=== PATIENT | female | born 1970 | race Caucasian/White ===

== ENCOUNTER 2017-06-23 20:46 | Inpatient (IN) | payer OTHER ==
[~2017-06-23] VITALS: Ht 175.2 cm; Wt 131.1 kg
[~2017-06-23 20:46] MED LIST: ANAPROX DS550 MG PO; ANTIVERT25 MG PO; CIPRO500 MG PO; CIPROFLOXACIN100 MG PO; CIPROFLOXACIN500 MG PO; COLACE100 MG PO; COREG3.125 MG PO; FLAGYL250 MG PO; FLAGYL500 MG PO; HYDROCODONE BIT1 T11 PO; LEVOFLOXACIN500 MG PO; LISINOPRIL10 MG PO; LISINOPRIL5 MG PO; MEDROL DOSEPAK4 MG PO; MIRALAX17 GM PO; MULTIPLE VITAMI1 CAP PO; Motrin,Rufen800 MG PO; NEURONTIN100 MG PO; NORCO 325 MG-101 TAB PO; NORCO 325 MG-51 TAB PO; NORVASC5 MG PO; PEPCID20 MG PO; PREDNICOT20 MG PO; PROAIR HFA0.09 MG/AC INH; VICODIN ES 7501 TAB PO; ZITHROMAX Z PA250 MG PO; ZITHROMAX250 MG PO; ZOFRAN ODT4 MG SL; ZOFRAN4 MG PO
[2017-06-23 20:53] VITALS: BP 152/93
--- NOTE | 2017-06-23 21:35 | NUR ---
PT MEDICATED FOR PAIN PER DOCTORS ORDERS. PRIOR TO MEDICATION ADMINISTRATION PT RATES PAIN 9/10. NO NEW ORDERS AT THIS TIME. WILL CONTINUE TO MONITOR.
--- NOTE | 2017-06-23 21:50 | NUR ---
PT STATES THE MEDICATION GIVEN PROVIDED SOME PAIN RELIEF. PT STATES HER PAIN IS NOW A 7/10. DOCTOR NOTIFIED. WILL CONTINUE TO MONITOR.
[2017-06-23 21:58] LABS: BASO # 0.1 10*3/uL (0.0-0.1); BASO % 0.5 % (0.0-1.0); EOS # 0.1 10*3/uL (0.0-0.4); EOS % 0.3 % (1.0-4.0); HEMATOCRIT 42.9 % (37.0-47.0); HEMOGLOBIN 14.2 g/dl (12.0-16.0); LYMPH # 4.9 10*3/uL (1.3-4.4); LYMPH % 26.7 % (27.0-41.0); MEAN CELL VOLUME 88.8 fl (81.0-99.0); MEAN CORPUSCULAR HGB 29.4 pg (27.0-31.0); MEAN CORPUSCULAR HGB CONC 33.1 g/dl (33.0-37.0); MEAN PLATELET VOLUME 10.4 fl (9.6-12.3); MONO # 1.1 10*3/uL (0.1-1.0); PLATELET COUNT AUTOMATED 441 10*3/uL (130-400); RED BLOOD COUNT 4.83 10*6/uL (4.10-5.10); RED CELL DISTRI WIDTH 13.9 % (0-14.5); WHITE BLOOD COUNT 18.2 10*3/uL (4.8-10.8)
[2017-06-23 22:09] LABS: ACT PARTIAL THROMBO TIME 30.4 SECONDS (20.8-31.5)
[2017-06-23 22:14] LABS: ALBUMIN 2.9 gm/dl (3.1-4.5); ALKALINE PHOSPHATASE 124 U/L (45-117); BUN 7 mg/dl (7-24); CHLORIDE 103 mmol/L (98-107); CREATININE 0.72 mg/dL (0.55-1.02); LIPASE 97 U/L (73-393); POTASSIUM 3.8 mmol/L (3.5-5.1); SGOT/AST 23 IU/L (3-35); SGPT/ALT 22 U/L (12-78); SODIUM 134 mmol/L (136-145); TOTAL PROTEIN 7.9 gm/dL (6.4-8.2)
--- NOTE | 2017-06-23 22:37 | NUR ---
PT MEDICATED FOR PAIN PER DOCTORS ORDERS. PRIOR TO MEDICATION ADMINISTRATION PT RATES PAIN 7/10. WILL CONTINUE TO MONITOR.
--- NOTE | 2017-06-23 23:00 | NUR ---
PT STATES THE MEDICATION PROVIDED RELIEF FOR PAIN. PT STATES PAIN 09/21. PT RESTING IN BED. WILL CONTINUE TO MONITOR.
[2017-06-24 00:27] LABS: BILIRUBIN NEGATIVE (NEGATIVE); BLOOD 3+ (NEGATIVE); CLARITY SL CLOUDY (CLEAR); COLOR YELLOW (YELLOW); GLUCOSE NEGATIVE (NEGATIVE); KETONE NEGATIVE (NEGATIVE); LEUKO ESTERASE NEGATIVE (NEGATIVE); NITRITE NEGATIVE (NEGATIVE); PH 5.5 (5.0-9.0)
[2017-06-24 00:41] LABS: BACTERIA TRACE; EPITHELIAL CELLS 15-20
[2017-06-24 01:30] VITALS: BP 113/61
--- NOTE | 2017-06-24 01:43 | NUR ---
PT TAKES NO HOME MEDICATIONS.
--- NOTE | 2017-06-24 01:44 | NUR ---
A 46, admitted to , under the services of NABIL Bennett DO with a diagnosis of DIVERTICULITIS. Chief complaint is ABDOMINAL PAIN. Patient arrived via bed from ER. Monitor applied. Initial assessment completed. Vital signs taken and recorded. NABIL BENNETT DO notified of admission to the unit. Orders received. See assessment for past medical history, medications and allergies. Patient and/or family oriented to unit. visitation policy reviewed. Clothing/patient valuable form completed. URIEL ARSHAD
[2017-06-24 06:31] LABS: BASO # 0.1 10*3/uL (0.0-0.1); BASO % 0.4 % (0.0-1.0); EOS # 0.1 10*3/uL (0.0-0.4); EOS % 0.9 % (1.0-4.0); HEMATOCRIT 40.9 % (37.0-47.0); HEMOGLOBIN 13.5 g/dl (12.0-16.0); LYMPH # 3.8 10*3/uL (1.3-4.4); LYMPH % 28.3 % (27.0-41.0); MEAN CELL VOLUME 91.5 fl (81.0-99.0); MEAN CORPUSCULAR HGB 30.2 pg (27.0-31.0); MEAN PLATELET VOLUME 10.4 fl (9.6-12.3); MONO # 1.1 10*3/uL (0.1-1.0); NEUT # 8.3 10*3/uL (2.3-7.9); NEUT % 61.9 % (47.0-73.0); PLATELET COUNT AUTOMATED 362 10*3/uL (130-400); RED BLOOD COUNT 4.47 10*6/uL (4.10-5.10); RED CELL DISTRI WIDTH 13.9 % (0-14.5); WHITE BLOOD COUNT 13.3 10*3/uL (4.8-10.8)
[2017-06-24 06:47] LABS: BUN 6 mg/dl (7-24); CHLORIDE 105 mmol/L (98-107); CHOLESTEROL 142 mg/dL (<200); CREATININE 0.65 mg/dL (0.55-1.02); HDL CHOLESTEROL 39 mg/dl (40-60); LDL CHOLESTEROL 85 mg/dL (9-159); POTASSIUM 3.7 mmol/L (3.5-5.1); SODIUM 140 mmol/L (136-145); TRIGLYCERIDES 91 mg/dl (<150); VLDL CHOLESTEROL 18 mg/dL (6-40)
[2017-06-24 06:54] LABS: ACT PARTIAL THROMBO TIME 30.5 SECONDS (20.8-31.5)
--- NOTE | 2017-06-24 07:08 | NUR ---
CALLED DR. DONNELLY AT ; NO ANSWER. CALLED OFFICE AT HIS OFFICE & LEFT MESSAGE REGARDING CONSULT.
--- NOTE | 2017-06-24 07:20 | NUR ---
DR. DONNELLY CALLED IN & NOTIFIED OF CONSULT. WILL SEE PT. THIS MORNING.
--- NOTE | 2017-06-24 07:45 | NUR ---
PT SITTING UP IN BED. RESP-EASY AND REGULAR. IVF INFUSING WITH NO PROBLEM. C/O LLQ PAIN, RATES PAIN 7 ON PAIN SCALE. MEDICATED WITH TYLENOL TWO TAB PO PER PRN ORDER, SEE EMAR. IVF INFUSING WITH NO PROBLEM. CALL LIGHT IN REACH. SEE SHIFT ASSESSMENT.
--- NOTE | 2017-06-24 07:50 | NUR ---
TRIED CALLING BABAK CLANCY FOR PAIN MEDICATION NO ANSWER.
[2017-06-24 08:00] VITALS: BP 126/77
--- NOTE | 2017-06-24 08:15 | NUR ---
BABAK CALLED. AWARE PT PAIN, SHE WILL SEE HER AND ORDER SOMETHING.
--- NOTE | 2017-06-24 08:56 | NUR ---
MEDICATIONS NOT PROFILED YET.
--- NOTE | 2017-06-24 09:07 | NUR ---
Supervisor Model Making in to talk to patient. Patient states lives at home with . There are few steps in the home. Physician: none [facility]acy[facility] Home health services: none Patient's level of ADLs: INDEPENDENT Patient has working utilities: all working DME: none Follow-up physician's appointment after d/c: will be made by hospitalist nurse director upon discharge Does patient want to access PORTAL?: no Discharge plan discussed with patient, patient lives at home with , is independent in adls and ambulation, patient states she will be going home when able and denies any home needs. QUIN BUTLER
--- NOTE | 2017-06-24 09:18 | NUR ---
PT MEDICATED WITH TORADOL IV PER PRN ORDER, SEE EMAR. FOR C/O LLQ PAIN, RATES PAIN 7 ON PAIN SCALE 0-10. CALL LIGHT IN REACH.
--- NOTE | 2017-06-24 09:25 | NUR ---
APPLIED NICOTINE PATCH PER PT REQUEST. CALL LIGHT IN REACH.
[2017-06-24 09:31] LABS: VITAMIN D, 25-HYDROXY 12.5 ng/mL (30-100)
--- NOTE | 2017-06-24 10:15 | NUR ---
SITTING IN BED. STATES PAIN MEDICATION HELPED SOME. CALL LIGHT IN REACH.
[2017-06-24 12:00] VITALS: BP 123/84
--- NOTE | 2017-06-24 12:00 | NUR ---
SITTING UP IN BED WITH VISITOR AT HER SIDE. NO C/O AT THIS TIME. TOLERATED ROUTINE VITAMIN D. CALL LIGHT IN REACH.
--- NOTE | 2017-06-24 15:30 | NUR ---
PT MEDICATED WITH TYLENOL PER PT REQUEST FOR HEADACHE, RATES PAIN 4 ON PAIN SCALE 0-10. SEE EMAR. CALL LIGHT IN REACH.
[2017-06-24 16:00] VITALS: BP 143/85
--- NOTE | 2017-06-24 16:30 | NUR ---
PT SITTING UP IN BED WITH VISITORS AT HER SIDE. STATES PAIN MEDICATION HELPED. NO C/O AT THIS TIME. CALL LIGHT IN REACH. SEE SHIFT ASSESSMENT.
--- NOTE | 2017-06-24 18:15 | NUR ---
PT SITTING UP IN BED WITH VISITORS AT HER SIDE. NO C/O AT THIS TIME. CALL LIGHT IN REACH.
--- NOTE | 2017-06-24 19:41 | NUR ---
PATIENT RESTING IN BED WITH NO S/S OF DISTRESS. NO NEEDS MADE. BED IN LOWEST POSITION, CALL LIGHT IN REACH
[2017-06-24 20:00] VITALS: BP 121/62
--- NOTE | 2017-06-24 20:20 | NUR ---
Pt checked on for a PRN breathing tx. Not indicated at this time. Lungs are clear and Spo2 on room air is 96%. Pt informed to call if she ever feels SOB or wheezing.
--- NOTE | 2017-06-24 20:30 | NUR ---
PATIENT MEDICATED WITH PRN TYLENOL FOR HEADACHE RATED 4/10 ON A 0/10 PAIN SCALE
[2017-06-25] VITALS: BP 104/62
--- NOTE | 2017-06-25 03:19 | NUR ---
MEDICATED WITH PRN TORADOL FOR C/O ABDOMINAL AND BACK PAIN. RATES 02/21.
[2017-06-25 08:00] VITALS: BP 124/94
--- NOTE | 2017-06-25 08:00 | NUR ---
PATIENT IS ALERT AND OTRIENTS THIS MORNING, IN TO VISIT, SITTING ON LEFT SIDE OF BED. NO COMPLAINTS OF PAIN AT THIS TIME. BE FORTUNECC
--- NOTE | 2017-06-25 09:00 | NUR ---
PT SITTING UP AT SIDE OF BED. RESP-EASY AND REGULAR. IVF INFUSING WITH NO PROBLEM. NO C/O AT THIS TIME. STUDENT NURSES TAKING CARE PT TODAY. CALL LIGHT IN REACH. WILL CON'T TO MONITOR.
--- NOTE | 2017-06-25 09:00 | NUR ---
case management visits with patient, patient states she will be going home, denies any home needs
[2017-06-25 09:08] LABS: HEMATOCRIT 38.6 % (37.0-47.0); HEMOGLOBIN 12.6 g/dl (12.0-16.0); MEAN CELL VOLUME 91.3 fl (81.0-99.0); MEAN CORPUSCULAR HGB 29.8 pg (27.0-31.0); MEAN CORPUSCULAR HGB CONC 32.6 g/dl (33.0-37.0); MEAN PLATELET VOLUME 10.3 fl (9.6-12.3); PLATELET COUNT AUTOMATED 387 10*3/uL (130-400); RED BLOOD COUNT 4.23 10*6/uL (4.10-5.10); RED CELL DISTRI WIDTH 13.8 % (0-14.5); WHITE BLOOD COUNT 12.2 10*3/uL (4.8-10.8)
[2017-06-25 09:27] LABS: CHLORIDE 107 mmol/L (98-107); POTASSIUM 3.6 mmol/L (3.5-5.1); SODIUM 139 mmol/L (136-145)
[2017-06-25 09:30] LABS: TOTAL CELLS COUNTED 100 #CELLS
[2017-06-25 09:31] LABS: PLATELET SUFFICIENCY NORMAL (NORMAL)
[2017-06-25 09:39] LABS: ALBUMIN 2.5 gm/dl (3.1-4.5); ALKALINE PHOSPHATASE 114 U/L (45-117); BUN 5 mg/dl (7-24); CREATININE 0.58 mg/dL (0.55-1.02); SGOT/AST 20 IU/L (3-35); SGPT/ALT 22 U/L (12-78)
[2017-06-25] MEDS ORDERED: CIPROFLOXACIN500 M4 PO (10:59)
[2017-06-25] MEDS ORDERED: METRONIDAZOLE500 M1 PO (10:59)
[2017-06-25 11:11] VITALS: BP 134/92
--- NOTE | 2017-06-25 11:39 | NUR ---
SPOKE WITH BABAK CLANCY AWARE OF PT BP THIS AM.
--- NOTE | 2017-06-25 12:00 | NUR ---
IV D/C'D, SITE ASYMPTOMATIC, PT GETTING DRESSED FOR DISCHARGE GABBY [facility]
--- NOTE | 2017-06-25 12:00 | NUR ---
PATIENT DISCHARED, ESCORTED DOWN TO CAR AND LEFT IN CARE OF . NARCISO CAPUTO
--- NOTE | 2017-06-25 12:40 | NUR ---
Discharge instructions reviewed with patient/family. Patient receptive and verbalizes understanding. Follow-up care arranged. Written instructions given to patient/family. JOSIE VILLARREAL
--- NOTE | 2017-06-25 12:48 | NUR ---
PT AMBULATORY OFF THE FLOOR FOR DISCHARGE. VERBALIZED UNDERSTANDING OF DISCHARGE INSTRUCTIONS. HEPLOCK REMOVED 2X2 APPLIED. MONITOR REMOVED.
== END 2017-06-25 12:48 | disposition home or self-care (01) | DRG 872 ==
LOC: ED 20:46 → 4E 23:51 → EDHOLD 23:51 → 4E 23:58
PROVIDERS: Emergency Medicine Emergency Medical Services; Internal Medicine; Registered Nurse; ADMIT Internal Medicine
DX: A41.9 Sepsis, unspecified organism (principal); E44.0 Moderate protein-calorie malnutrition; K57.32 Diverticulitis of large intestine without perforation or abscess without bleeding; E66.01 Morbid (severe) obesity due to excess calories; E83.39 Other disorders of phosphorus metabolism; E83.51 Hypocalcemia; E87.1 Hypo-osmolality and hyponatremia; Z68.41 Body mass index [BMI] 40.0-44.9, adult; I10 Essential (primary) hypertension; J44.9 Chronic obstructive pulmonary disease, unspecified; R73.9 Hyperglycemia, unspecified; Z87.440 Personal history of urinary (tract) infections; Z90.49 Acquired absence of other specified parts of digestive tract; Z98.51 Tubal ligation status; Z80.1 Family history of malignant neoplasm of trachea, bronchus and lung; Z83.3 Family history of diabetes mellitus; Z82.49 Family history of ischemic heart disease and other diseases of the circulatory system; Z80.49 Family history of malignant neoplasm of other genital organs; Z88.0 Allergy status to penicillin; Z88.8 Allergy status to other drugs, medicaments and biological substances; Z88.6 Allergy status to analgesic agent; Z91.040 Latex allergy status; Z71.6 Tobacco abuse counseling; Z72.0 Tobacco use; K45.8 Other specified abdominal hernia without obstruction or gangrene

== ENCOUNTER 2018-08-10 12:38 | Inpatient (IN) | payer BC ==
--- NOTE | ~2018-08-10 | EKG ---
[place], [place] ELECTROCARDIOGRAM REPORT NAME: ANGIE BIRMINGHAM UNIT #: [id number] ROOM: 412 DOCTOR: OTF DRAFT REPORT BIRTHDATE: [birth year] [facility] Test Date: 2018-08-10 Test Time: 12:39:37 Pat Name: ANGIE BIRMINGHAM Department: Room: 412 Gender: F Educational Speech Language Clinician: : 1970 Requested By: VALENCIA BRUMFIELD Order Number: [id number] Reading MD: Tc Black MD Measurements Intervals [place] Rate: 110 P: 64 NH: 139 QRS: 72 QRSD: 93 T: -14 QT: 350 QTc: 474 Interpretive Statements Sinus tachycardia Borderline repolarization abnormality Electronically Signed On 08-11-2018 21:19:02 PST by Tc Black MD CM:EKGRPT:ELECTROCARDIOGRAM REPORT [id number] VALENCIA VANESSA DRAFT REPORT VALENCIA BRUMFIELD MD
--- NOTE | ~2018-08-10 | EKG ---
[place], [place] ELECTROCARDIOGRAM REPORT NAME: ANGIE BIRMINGHAM UNIT #: [id number] ROOM: 412 DOCTOR: OTF DRAFT REPORT BIRTHDATE: [birth year] [facility] Test Date: 2018-08-10 Test Time: 18:13:03 Pat Name: ANGIE BIRMINGHAM Department: Room: 412 Gender: F Circus Hand: Soledad Caicedo : 1970 Requested By: VALENCIA BRUMFIELD Order Number: [id number] Reading MD: Tc Black MD Measurements Intervals [place] Rate: 82 P: 62 NH: 143 QRS: 63 QRSD: 91 T: 32 QT: 403 QTc: 471 Interpretive Statements Sinus rhythm Borderline T abnormalities, anterior leads Compared to earlier ECG this date Anterior T-wave abnormalities are now present Electronically Signed On 08-11-2018 21:28:54 PST by Tc Black MD CM:EKGRPT:ELECTROCARDIOGRAM REPORT 12 27 VALENCIA VANESSA DRAFT REPORT VALENCIA BRUMFIELD MD
--- NOTE | ~2018-08-10 | EKG ---
[place], [place] ELECTROCARDIOGRAM REPORT NAME: ANGIE BIRMINGHAM UNIT #: [id number] ROOM: 412 DOCTOR: OTF DRAFT REPORT BIRTHDATE: [birth year] [facility] Test Date: 2018-08-10 Test Time: 15:16:59 Pat Name: ANGIE BIRMINGHAM Department: Room: 412 Gender: F Focuser: Soledad Caicedo : 1970 Requested By: VALENCIA BRUMFIELD Order Number: [id number] Reading MD: Tc Black MD Measurements Intervals [place] Rate: 91 P: 51 UT: 137 QRS: 60 QRSD: 105 T: 42 QT: 380 QTc: 468 Interpretive Statements Sinus rhythm No change from earlier ECG this date Electronically Signed On 08-11-2018 21:23:59 PST by Tc Black MD CM:EKGRPT:ELECTROCARDIOGRAM REPORT [id number] 22 VALENCIA VANESSA DRAFT REPORT VALENCIA BRUMFIELD MD
[~2018-08-10 12:38] MED LIST changes: +CIPROFLOXACIN500 M4 PO; +METRONIDAZOLE500 M1 PO
[2018-08-10 12:51] LABS: BASO # 0.1 10*3/uL (0.0-0.1); BASO % 0.6 % (0.0-1.0); EOS # 0.1 10*3/uL (0.0-0.4); EOS % 0.8 % (1.0-4.0); HEMATOCRIT 46.4 % (37.0-47.0); HEMOGLOBIN 15.4 g/dl (12.0-16.0); LYMPH # 4.5 10*3/uL (1.3-4.4); LYMPH % 28.7 % (27.0-41.0); MEAN CELL VOLUME 88.2 fl (81.0-99.0); MEAN CORPUSCULAR HGB 29.3 pg (27.0-31.0); MEAN CORPUSCULAR HGB CONC 33.2 g/dl (33.0-37.0); MEAN PLATELET VOLUME 10.8 fl (9.6-12.3); MONO # 0.9 10*3/uL (0.1-1.0); MONO % 5.5 % (3.0-9.0); PLATELET COUNT AUTOMATED 404 10*3/uL (130-400); RED BLOOD COUNT 5.26 10*6/uL (4.10-5.10); RED CELL DISTRI WIDTH 13.7 % (0-14.5); WHITE BLOOD COUNT 15.7 10*3/uL (4.8-10.8)
[2018-08-10 12:54] VITALS: BP 180/90
[2018-08-10 13:06] LABS: ACT PARTIAL THROMBO TIME 24.7 SECONDS (20.8-31.5); INTERNATIONAL NORM RATIO 0.9 (2.0-3.5)
[2018-08-10 13:15] LABS: ALBUMIN 2.6 gm/dl (3.1-4.5); ALKALINE PHOSPHATASE 208 U/L (45-117); BUN 9 mg/dl (7-24); CHLORIDE 99 mmol/L (98-107); CREATININE 0.81 mg/dL (0.55-1.02); POTASSIUM 5.3 mmol/L (3.5-5.1); SGOT/AST 47 IU/L (3-35); SGPT/ALT 37 U/L (12-78); SODIUM 132 mmol/L (136-145)
[2018-08-10 13:16] LABS: TROPONIN I < 0.015 ng/ml (<0.045)
--- NOTE | 2018-08-10 14:11 | NUR ---
SITTING IN BED QUIETLY AT THIS TIME. BED ADJUSTED FOR COMFORT. IVF INFUSING.
[2018-08-10 14:12] VITALS: BP 145/88
--- NOTE | 2018-08-10 14:32 | NUR ---
PT FEELING BETTER.
[2018-08-10 15:30] VITALS: BP 120/64
--- NOTE | 2018-08-10 15:30 | NUR ---
A 47, admitted to , under the services of CHRISTINA Dobson DO with a diagnosis of UNCONTROLLED HTN. Chief complaint is DIzZY, HEADACHE. Patient arrived via wheel chair from ER. Monitor applied. Initial assessment completed. Vital signs taken and recorded. CHRISTINA DOBSON DO notified of admission to the unit. Orders received. See assessment for past medical history, medications and allergies. Patient and/or family oriented to unit. [facility] visitation policy reviewed. Clothing/patient valuable form completed. BORIS GANDHI
[2018-08-10 15:39] LABS: BILIRUBIN NEGATIVE (NEGATIVE); BLOOD NEGATIVE (NEGATIVE); CLARITY SL CLOUDY (CLEAR); COLOR YELLOW (YELLOW); GLUCOSE 3+ (NEGATIVE); KETONE NEGATIVE (NEGATIVE); LEUKO ESTERASE NEGATIVE (NEGATIVE); NITRITE NEGATIVE (NEGATIVE)
[2018-08-10 15:53] LABS: RBC 0-2 rbc/hpf (0-2); WBC 0-2 wbc/hpf (0-5)
--- NOTE | 2018-08-10 16:24 | NUR ---
MED REC UPDATED WITH PT AT BEDSIDE. STATES SHE DOES NOT USE ANY MEDS ON A REGULAR BASIS. BSG 218 AT THIS TIME. SEE MAR FOR COVERAGE.
[2018-08-10 20:00] VITALS: BP 127/74
[2018-08-11] VITALS: BP 129/84
[2018-08-11 06:21] LABS: HEMATOCRIT 45.7 % (37.0-47.0); MEAN CELL VOLUME 89.4 fl (81.0-99.0); MEAN CORPUSCULAR HGB 29.4 pg (27.0-31.0); MEAN CORPUSCULAR HGB CONC 32.8 g/dl (33.0-37.0); MEAN PLATELET VOLUME 10.6 fl (9.6-12.3); PLATELET COUNT AUTOMATED 384 10*3/uL (130-400); RED BLOOD COUNT 5.11 10*6/uL (4.10-5.10); RED CELL DISTRI WIDTH 13.8 % (0-14.5); WHITE BLOOD COUNT 12.6 10*3/uL (4.8-10.8)
[2018-08-11 06:42] LABS: ALBUMIN 2.7 gm/dl (3.1-4.5); BUN 8 mg/dl (7-24); CHLORIDE 106 mmol/L (98-107); CHOLESTEROL 192 mg/dL (<200); SGOT/AST 29 IU/L (3-35); SGPT/ALT 33 U/L (12-78)
[2018-08-11 06:50] LABS: ALKALINE PHOSPHATASE 175 U/L (45-117); CREATININE 0.64 mg/dL (0.55-1.02); FREE T4 1.03 ng/dl (0.76-1.46); HDL CHOLESTEROL 39 mg/dl (40-60); LDL CHOLESTEROL 126 mg/dL (9-159); PHOSPHOROUS 3.9 mg/dL (2.5-4.9); TOTAL PROTEIN 7.5 gm/dL (6.4-8.2); TRIGLYCERIDES 137 mg/dl (<150); VLDL CHOLESTEROL 27 mg/dL (6-40)
[2018-08-11 07:04] LABS: SODIUM 139 mmol/L (136-145)
[2018-08-11 07:05] LABS: POTASSIUM 4.1 mmol/L (3.5-5.1)
[2018-08-11 07:23] LABS: ATYPICAL LYMPHS 1 % (0-0); PLATELET SUFFICIENCY NORMAL (NORMAL); TOTAL CELLS COUNTED 100 #CELLS
--- NOTE | 2018-08-11 09:00 | NUR ---
Gang Hemstitching Machine Operator in to talk to patient. Patient states lives at home with . There are few steps in the home. Physician: none [facility]acy: [facility] Home health services: none Patient's level of ADLs: INDEPENDENT Patient has working utilities: all working DME: none Follow-up physician's appointment after d/c: will be made by hospitalist nurse director upon discharge Does patient want to access PORTAL?: no Discharge plan discussed with patient, patient lives at home, is independent in adls and ambulation, patient states she will be going home when able and denies any home needs. QUIN BUTLER
[2018-08-11] MEDS ORDERED: LOSARTAN POTASS25 M1 PO (12:44)
[2018-08-11] MEDS ORDERED: VITAMIN D5000 UNI1 PO (12:44)
[2018-08-11] MEDS ORDERED: METFORMIN HCL500 M2 PO (12:44)
--- NOTE | 2018-08-11 13:35 | NUR ---
Discharge instructions reviewed with patient/family. Patient receptive and verbalizes understanding. Follow-up care arranged. Written instructions given to patient/family. JADE NAVARRO
== END 2018-08-11 13:35 | disposition home or self-care (01) | DRG 205 ==
LOC: ED 12:38 → 4E 14:35 → EDHOLD 14:35 → 4E 14:50
PROVIDERS: Emergency Medicine; Family Medicine; ADMIT Internal Medicine
DX: M94.0 Chondrocostal junction syndrome [Tietze] (principal); R65.11 Systemic inflammatory response syndrome (SIRS) of non-infectious origin with acute organ dysfunction; J18.9 Pneumonia, unspecified organism; J44.0 Chronic obstructive pulmonary disease with (acute) lower respiratory infection; E44.0 Moderate protein-calorie malnutrition; Z68.41 Body mass index [BMI] 40.0-44.9, adult; E11.65 Type 2 diabetes mellitus with hyperglycemia; F41.9 Anxiety disorder, unspecified; K21.9 Gastro-esophageal reflux disease without esophagitis; E66.01 Morbid (severe) obesity due to excess calories; E87.5 Hyperkalemia; F17.210 Nicotine dependence, cigarettes, uncomplicated; K76.0 Fatty (change of) liver, not elsewhere classified; I10 Essential (primary) hypertension; K57.90 Diverticulosis of intestine, part unspecified, without perforation or abscess without bleeding; Z91.040 Latex allergy status; Z88.0 Allergy status to penicillin; Z91.048 Other nonmedicinal substance allergy status; Z90.49 Acquired absence of other specified parts of digestive tract; Z98.51 Tubal ligation status; Z83.3 Family history of diabetes mellitus; Z82.49 Family history of ischemic heart disease and other diseases of the circulatory system; Z79.82 Long term (current) use of aspirin; Z79.1 Long term (current) use of non-steroidal anti-inflammatories (NSAID); Z79.899 Other long term (current) drug therapy; Z79.84 Long term (current) use of oral hypoglycemic drugs

== ENCOUNTER 2018-09-14 17:48 | Inpatient (IN) | payer SELFPAY ==
[~2018-09-14] VITALS: Ht 175.2 cm; Wt 130.3 kg
[~2018-09-14 17:48] MED LIST changes: +LOSARTAN POTASS25 M1 PO; +METFORMIN HCL500 M2 PO; +VITAMIN D5000 UNI1 PO
[2018-09-14 17:51] VITALS: BP 126/80
[2018-09-14 18:15] LABS: HEMATOCRIT 41.2 % (37.0-47.0); HEMOGLOBIN 13.7 g/dl (12.0-16.0); MEAN CELL VOLUME 89.8 fl (81.0-99.0); MEAN CORPUSCULAR HGB 29.8 pg (27.0-31.0); MEAN CORPUSCULAR HGB CONC 33.3 g/dl (33.0-37.0); MEAN PLATELET VOLUME 10.3 fl (9.6-12.3); PLATELET COUNT AUTOMATED 390 10*3/uL (130-400); RED BLOOD COUNT 4.59 10*6/uL (4.10-5.10); WHITE BLOOD COUNT 22.8 10*3/uL (4.8-10.8)
[2018-09-14 18:37] LABS: BILIRUBIN NEGATIVE (NEGATIVE); BLOOD 3+ (NEGATIVE); CLARITY SL CLOUDY (CLEAR); COLOR YELLOW (YELLOW); GLUCOSE 3+ (NEGATIVE); KETONE NEGATIVE (NEGATIVE); LEUKO ESTERASE 1+ (NEGATIVE); NITRITE POSITIVE (NEGATIVE); PH 5.5 (5.0-9.0); SPECIFIC GRAVITY 1.015 (1.005-1.030)
[2018-09-14 18:39] LABS: PLATELET SUFFICIENCY NORMAL (NORMAL); TOTAL CELLS COUNTED 100 #CELLS
[2018-09-14 18:41] LABS: ALBUMIN 2.1 gm/dl (3.1-4.5); ALKALINE PHOSPHATASE 157 U/L (45-117); BUN 13 mg/dl (7-24); CHLORIDE 100 mmol/L (98-107); CREATININE 1.04 mg/dL (0.55-1.02); LIPASE 71 U/L (73-393); POTASSIUM 3.9 mmol/L (3.5-5.1); SGOT/AST 34 IU/L (3-35); SGPT/ALT 30 U/L (12-78); SODIUM 132 mmol/L (136-145); TOTAL PROTEIN 7.6 gm/dL (6.4-8.2)
[2018-09-14 18:44] LABS: BACTERIA 1+; WBC TNTC wbc/hpf (0-5)
--- NOTE | 2018-09-14 20:40 | NUR ---
CRITICAL TAKEN, LACTIC ACID 2.2. A.DENA DOW NOTIFIED.
[2018-09-14 21:10] VITALS: BP 132/81
--- NOTE | 2018-09-14 21:10 | NUR ---
A 47, admitted to 4E, under the services of ANGELITA Flowers DO with a diagnosis of UTI, DIVERTICULITIS, SEPSIS. Chief complaint is N/V/D, WEAKNESS, FEVER, GLUCOSE >500. Patient arrived via stretcher from ER. Monitor applied. Initial assessment completed. Vital signs taken and recorded. ANGELITA FLOWERS DO notified of admission to the unit. Orders received. See assessment for past medical history, medications and allergies. Clothing/patient valuable form completed. JAE JEAN BAPTISTE
--- NOTE | 2018-09-14 22:24 | NUR ---
NORCO GIVEN FOR C/O HEADACHE. ALL SAFETY MEASURES IN PLACE. WILL MONITOR.
--- NOTE | 2018-09-14 23:19 | NUR ---
DR YUN NOTIFIED MED REC UP TO DATE.
[2018-09-15] VITALS: BP 101/62
--- NOTE | 2018-09-15 03:30 | NUR ---
PT SLEEPING ON LT SIDE, RESPIRATIONS EASY AND REGULAR ON ROOM AIR. IVF INFUSING PER ORDERS. BED IN LOW, LOCKED POS, CALL LIGHT WITHIN REACH.
[2018-09-15 06:14] LABS: BASO # 0.1 10*3/uL (0.0-0.1); BASO % 0.5 % (0.0-1.0); EOS % 0.3 % (1.0-4.0); HEMATOCRIT 41.4 % (37.0-47.0); HEMOGLOBIN 13.3 g/dl (12.0-16.0); LYMPH # 1.1 10*3/uL (1.3-4.4); LYMPH % 8.4 % (27.0-41.0); MEAN CELL VOLUME 90.8 fl (81.0-99.0); MEAN CORPUSCULAR HGB 29.2 pg (27.0-31.0); MEAN CORPUSCULAR HGB CONC 32.1 g/dl (33.0-37.0); MEAN PLATELET VOLUME 10.3 fl (9.6-12.3); MONO # 0.3 10*3/uL (0.1-1.0); MONO % 2.5 % (3.0-9.0); NEUT # 11.7 10*3/uL (2.3-7.9); NEUT % 87.8 % (47.0-73.0); PLATELET COUNT AUTOMATED 372 10*3/uL (130-400); RED BLOOD COUNT 4.56 10*6/uL (4.10-5.10); WHITE BLOOD COUNT 13.4 10*3/uL (4.8-10.8)
[2018-09-15 06:33] LABS: ACT PARTIAL THROMBO TIME 30.1 SECONDS (20.8-31.5)
[2018-09-15 06:41] LABS: BUN 9 mg/dl (7-24); CHLORIDE 105 mmol/L (98-107); HDL CHOLESTEROL 27 mg/dl (40-60); POTASSIUM 3.6 mmol/L (3.5-5.1); SODIUM 138 mmol/L (136-145)
[2018-09-15 06:52] LABS: ALKALINE PHOSPHATASE 147 U/L (45-117); CHOLESTEROL 107 mg/dL (<200); CREATININE 0.69 mg/dL (0.55-1.02); FREE T4 1.32 ng/dl (0.76-1.46); LDL CHOLESTEROL 62 mg/dL (9-159); PHOSPHOROUS 2.1 mg/dL (2.5-4.9); SGOT/AST 55 IU/L (3-35); SGPT/ALT 40 U/L (12-78); TOTAL PROTEIN 7.2 gm/dL (6.4-8.2); TRIGLYCERIDES 91 mg/dl (<150); VLDL CHOLESTEROL 18 mg/dL (6-40)
[2018-09-15 07:49] LABS: VITAMIN D, 25-HYDROXY 23.3 ng/mL (30-100)
[2018-09-15 08:00] VITALS: BP 100/64
--- NOTE | 2018-09-15 08:00 | NUR ---
PT REQUESTED AND GIVEN TYLENOL FOR C/O HEADACHE WILL MONITOR
--- NOTE | 2018-09-15 09:00 | NUR ---
Sales Representative Raw Fibers in to talk to patient. Patient states lives at home with . There are few steps in the home. Physician: none [facility]acy: [facility] Home health services: none Patient's level of ADLs: INDEPENDENT Patient has working utilities: all working DME: none Follow-up physician's appointment after d/c: [facility] Does patient want to access PORTAL?: no Discharge plan discussed with patient, patient lives at home with , she is independent in adls and ambulation, works drives, patient states she will be going home when able and denies any home needs discussed with her not having any insurance. educated her that Chelsea from [facility] will be talking with her and helping her fill out a form to help with the hospital stay. patient denies any other needs at this time. QUIN BUTLER
--- NOTE | 2018-09-15 10:40 | NUR ---
OEN TIME DOSE TORADOL GIVEN FOR C/O HEADACHE WILL MONITOR
[2018-09-15 12:00] VITALS: BP 136/69
--- NOTE | 2018-09-15 12:21 | NUR ---
PT STATES THAT TORADOL HELPED WILL MONITOR
--- NOTE | 2018-09-15 14:00 | NUR ---
PT STATES THAT SHE ATE LUNCH NO VOICED C/O AT THIS TIME
[2018-09-15 16:00] VITALS: BP 117/79
--- NOTE | 2018-09-15 16:25 | NUR ---
PT RESTING IN BED, EYES CLOSED. NO DISTRESS NOTED. WILL MONITOR
--- NOTE | 2018-09-15 16:56 | NUR ---
PT REQUESTED AND GIVEN NORCO FOR HEADACHE WILL MONITOR
[2018-09-15 20:00] VITALS: BP 136/86
--- NOTE | 2018-09-15 20:40 | NUR ---
PATIENT ROCEPHIN INFUSION FINISHED. PATIENT C/O BURNING. OFFERED TO START A NEW IV. PATIENT REFUSING AT THIS TIME. STATES SHE WILL DEAL WITH THE BURNING BECAUSE SHE DOES NOT WANT ANOTHER IV.
--- NOTE | 2018-09-15 22:24 | NUR ---
PATIENT C/O OF A HEADACHE. RATES 02/21. MEDICATED WITH PRN NORCO. WILL CHECK EFFECTIVENESS. OFFERED ICE PACK FOR HEADACHE. PATIENT DECLINED.
[2018-09-16] VITALS: BP 155/98
--- NOTE | 2018-09-16 05:56 | NUR ---
PATIENT AGAIN REFUSING COVERAGE FOR BLOOD SUGAR OF 196. STATES SHE DOESNT WANT TO DROP TO LOW.
[2018-09-16 08:00] VITALS: BP 150/70
[2018-09-16 08:10] LABS: BASO # 0.1 10*3/uL (0.0-0.1); BASO % 0.7 % (0.0-1.0); EOS # 0.1 10*3/uL (0.0-0.4); EOS % 1.5 % (1.0-4.0); HEMATOCRIT 40.2 % (37.0-47.0); LYMPH # 2.3 10*3/uL (1.3-4.4); LYMPH % 30.7 % (27.0-41.0); MEAN CELL VOLUME 89.5 fl (81.0-99.0); MEAN CORPUSCULAR HGB CONC 32.3 g/dl (33.0-37.0); MEAN PLATELET VOLUME 10.2 fl (9.6-12.3); MONO # 0.4 10*3/uL (0.1-1.0); MONO % 5.7 % (3.0-9.0); NEUT # 4.5 10*3/uL (2.3-7.9); NEUT % 60.9 % (47.0-73.0); PLATELET COUNT AUTOMATED 320 10*3/uL (130-400); RED BLOOD COUNT 4.49 10*6/uL (4.10-5.10); RED CELL DISTRI WIDTH 13.9 % (0-14.5); WHITE BLOOD COUNT 7.3 10*3/uL (4.8-10.8)
--- NOTE | 2018-09-16 08:30 | NUR ---
PT RESTING IN BED. NO DISTRESS NOTED. WILL MONITOR
[2018-09-16 08:40] LABS: BUN 9 mg/dl (7-24); CHLORIDE 103 mmol/L (98-107); CREATININE 0.61 mg/dL (0.55-1.02); SGOT/AST 63 IU/L (3-35); SGPT/ALT 48 U/L (12-78); SODIUM 136 mmol/L (136-145)
[2018-09-16 08:42] LABS: ALKALINE PHOSPHATASE 161 U/L (45-117); PHOSPHOROUS 2.4 mg/dL (2.5-4.9); TOTAL PROTEIN 7.3 gm/dL (6.4-8.2)
--- NOTE | 2018-09-16 09:00 | NUR ---
case management visits with patient, patient states she will be going home when able and denies any home needs
[2018-09-16 12:00] VITALS: BP 135/75
[2018-09-16 16:00] VITALS: BP 133/77
[2018-09-16 20:00] VITALS: BP 138/86; BP 148/103
[2018-09-17] VITALS: BP 127/82
--- NOTE | 2018-09-17 05:56 | NUR ---
SPOKE WITH DR COLE REGARDING PATIENTS REQUEST FOR MOTRIN. PATIENTS STATES NORCO HAS NOT HELPED WITH HEADACHE AND AT HOME ADVIL IS EFFECTIVE FOR HER. PER DR COLE SHE WILL PLACE ORDERS.
[2018-09-17 08:00] VITALS: BP 142/78
[2018-09-17] MEDS ORDERED: FLAGYL500 MG PO (08:06)
--- NOTE | 2018-09-17 08:06 | NUR ---
Patient resting quietly with no c/o discomfort. Respirations easy and regular. Vital signs stable. No overt distress. BORIS GERARD 24 HR chart check completed.
[2018-09-17] MEDS ORDERED: CIPRO500 MG PO (08:07)
[2018-09-17] MEDS ORDERED: LOSARTAN POTASS25 M1 PO ×2 (08:24→08:25)
--- NOTE | 2018-09-17 09:00 | NUR ---
PT LEAVING, AMBULATORY IN CARE OF DAUGHTER.
--- NOTE | 2018-09-17 09:00 | NUR ---
case management visits with patient, patient is to be going home today, denies any home needs
== END 2018-09-17 09:00 | disposition home or self-care (01) | DRG 872 ==
LOC: ED 17:48 → EDHOLD 20:22 → 4E 20:22
PROVIDERS: Family Medicine; Physician Assistant; Registered Nurse; ADMIT Internal Medicine
DX: A41.9 Sepsis, unspecified organism (principal); K57.92 Diverticulitis of intestine, part unspecified, without perforation or abscess without bleeding; N39.0 Urinary tract infection, site not specified; E44.0 Moderate protein-calorie malnutrition; Z68.41 Body mass index [BMI] 40.0-44.9, adult; R65.20 Severe sepsis without septic shock; E83.51 Hypocalcemia; E83.39 Other disorders of phosphorus metabolism; E11.65 Type 2 diabetes mellitus with hyperglycemia; R74.0 Nonspecific elevation of levels of transaminase and lactic acid dehydrogenase [LDH]; F17.210 Nicotine dependence, cigarettes, uncomplicated; A49.8 Other bacterial infections of unspecified site; J44.9 Chronic obstructive pulmonary disease, unspecified; I10 Essential (primary) hypertension; Z88.0 Allergy status to penicillin; Z91.040 Latex allergy status; Z91.09 Other allergy status, other than to drugs and biological substances; Z90.49 Acquired absence of other specified parts of digestive tract; Z98.51 Tubal ligation status; Z83.3 Family history of diabetes mellitus; Z80.59 Family history of malignant neoplasm of other urinary tract organ; Z82.49 Family history of ischemic heart disease and other diseases of the circulatory system; Z79.4 Long term (current) use of insulin

== ENCOUNTER 2018-10-20 14:23 | Emergency (ER) | payer SELFPAY ==
[~2018-10-20] VITALS: Ht 175.2 cm; Wt 122.5 kg
[2018-10-20 14:24] VITALS: BP 156/100
[2018-10-20] MEDS ORDERED: VIBRAMYCIN100 MG PO (14:43)
== END 2018-10-20 14:54 | disposition home or self-care (01) ==
LOC: ED 14:23
DX: S20.462A Insect bite (nonvenomous) of left back wall of thorax, initial encounter (principal); Z88.0 Allergy status to penicillin; Z91.040 Latex allergy status; Z87.891 Personal history of nicotine dependence; W57.XXXA Bitten or stung by nonvenomous insect and other nonvenomous arthropods, initial encounter; Y93.89 Activity, other specified; Y92.89 Other specified places as the place of occurrence of the external cause; Y99.8 Other external cause status

== ENCOUNTER 2019-02-23 16:57 | Emergency (ER) | payer SELFPAY ==
[~2019-02-23] VITALS: Ht 175.2 cm; Wt 127.0 kg
[~2019-02-23 16:57] MED LIST changes: +VIBRAMYCIN100 MG PO
[2019-02-23] MEDS ORDERED: MIRALAX119 GM PO (17:03)
[2019-02-23 18:14] LABS: HEMATOCRIT 46.5 % (37.0-47.0); HEMOGLOBIN 15.1 g/dl (12.0-16.0); MEAN CELL VOLUME 89.3 fl (81.0-99.0); MEAN CORPUSCULAR HGB CONC 32.5 g/dl (33.0-37.0); PLATELET COUNT AUTOMATED 546 10*3/uL (130-400); RED BLOOD COUNT 5.21 10*6/uL (4.10-5.10); RED CELL DISTRI WIDTH 14.1 % (0-14.5); WHITE BLOOD COUNT 19.5 10*3/uL (4.8-10.8)
[2019-02-23 18:35] LABS: ACT PARTIAL THROMBO TIME 27.4 SECONDS (20.0-32.1); INTERNATIONAL NORM RATIO 0.9 (2.0-3.5)
[2019-02-23 18:38] LABS: TOTAL CELLS COUNTED 100 #CELLS
[2019-02-23 18:39] LABS: PLATELET SUFFICIENCY HIGH (NORMAL)
[2019-02-23 18:39] LABS: BILIRUBIN NEGATIVE (NEGATIVE); BLOOD 2+ (NEGATIVE); CLARITY CLEAR (CLEAR); COLOR YELLOW (YELLOW); GLUCOSE NEGATIVE (NEGATIVE); KETONE NEGATIVE (NEGATIVE); LEUKO ESTERASE NEGATIVE (NEGATIVE); NITRITE POSITIVE (NEGATIVE)
[2019-02-23 18:43] LABS: ALKALINE PHOSPHATASE 145 U/L (45-117); BUN 9 mg/dl (7-24); CHLORIDE 102 mmol/L (98-107); CREATININE 0.72 mg/dL (0.55-1.02); LIPASE 84 U/L (73-393); POTASSIUM 3.9 mmol/L (3.5-5.1); SGOT/AST 16 IU/L (3-35); SGPT/ALT 20 U/L (12-78); SODIUM 134 mmol/L (136-145); TOTAL PROTEIN 8.8 gm/dL (6.4-8.2)
[2019-02-23 19:02] LABS: EPITHELIAL CELLS 51-100
[2019-02-23 19:03] LABS: BACTERIA 4+; RBC 16-20 rbc/hpf (0-2)
[2019-02-23 19:59] VITALS: BP 129/79
[2019-02-23] MEDS ORDERED: CIPRO500 MG PO (20:05)
[2019-02-23] MEDS ORDERED: FLAGYL500 MG PO (20:05)
== END 2019-02-23 20:58 | disposition home or self-care (01) ==
LOC: ED 16:57
PROVIDERS: Physician Assistant
DX: K57.32 Diverticulitis of large intestine without perforation or abscess without bleeding (principal); N39.0 Urinary tract infection, site not specified; F17.200 Nicotine dependence, unspecified, uncomplicated; Z88.0 Allergy status to penicillin; Z91.048 Other nonmedicinal substance allergy status; Z91.040 Latex allergy status; Z79.899 Other long term (current) drug therapy; Z90.49 Acquired absence of other specified parts of digestive tract

== ENCOUNTER 2019-04-30 14:51 | Inpatient (IN) | payer SELFPAY ==
[~2019-04-30] VITALS: Ht 175.2 cm; Wt 122.1 kg
[~2019-04-30 14:51] MED LIST changes: +MIRALAX119 GM PO
[2019-04-30 14:52] VITALS: BP 160/100
--- NOTE | 2019-04-30 15:29 | NUR ---
TORADOL GIVEN BY ELBERT REYES
[2019-04-30 15:34] LABS: HEMATOCRIT 44.4 % (37.0-47.0); HEMOGLOBIN 14.1 g/dl (12.0-16.0); MEAN CELL VOLUME 88.3 fl (81.0-99.0); MEAN CORPUSCULAR HGB CONC 31.8 g/dl (33.0-37.0); MEAN PLATELET VOLUME 9.4 fl (9.6-12.3); PLATELET COUNT AUTOMATED 670 10*3/uL (130-400); RED BLOOD COUNT 5.03 10*6/uL (4.10-5.10)
[2019-04-30 15:50] LABS: ALBUMIN 2.7 gm/dl (3.1-4.5); ALKALINE PHOSPHATASE 151 U/L (45-117); BUN 8 mg/dl (7-24); CHLORIDE 104 mmol/L (98-107); LIPASE 88 U/L (73-393); POTASSIUM 3.5 mmol/L (3.5-5.1); SGOT/AST 13 IU/L (3-35); SGPT/ALT 18 U/L (12-78); SODIUM 136 mmol/L (136-145); TOTAL PROTEIN 8.7 gm/dL (6.4-8.2)
[2019-04-30 15:57] LABS: ATYPICAL LYMPHS 1 % (0-0); TOTAL CELLS COUNTED 100 #CELLS
[2019-04-30 15:58] LABS: PLATELET SUFFICIENCY HIGH (NORMAL)
--- NOTE | 2019-04-30 16:13 | NUR ---
PATIENT STATES THAT SHE IS FELLING ALOT BETTER AFTER PAIN MEDICATION. PT STATES THAT MEDICATION HAS BEEN EFFECTIVE. NO FURTHER COMPLAINTS AT THIS TIME. CALL LIGHT WITHIN REACH.
[2019-04-30 17:04] LABS: BILIRUBIN NEGATIVE (NEGATIVE); BLOOD 2+ (NEGATIVE); CLARITY SL CLOUDY (CLEAR); COLOR YELLOW (YELLOW); GLUCOSE NEGATIVE (NEGATIVE); KETONE NEGATIVE (NEGATIVE); LEUKO ESTERASE 1+ (NEGATIVE); NITRITE NEGATIVE (NEGATIVE); SPECIFIC GRAVITY 1.015 (1.005-1.030); UROBILINOGEN 0.2 E.U./dl (0.2-1.0)
[2019-04-30 17:22] LABS: BACTERIA TRACE; EPITHELIAL CELLS 0-2; RBC TNTC rbc/hpf (0-2)
[2019-04-30 18:23] VITALS: BP 130/82
--- NOTE | 2019-04-30 18:28 | NUR ---
Dr. Leavitt states that she is entering consult for Dr. Reina. States no need to call him as he was already called from the ER. She also states that radiology is aware that pt will need a drain placed.
--- NOTE | 2019-04-30 18:30 | NUR ---
PATIENT STATES SHE WOULD PERFER TO STAY IN HER PERSONAL CLOTHES DUE TO BEING MORE COMFORTABLE.
--- NOTE | 2019-04-30 18:40 | NUR ---
A 48, admitted to , under the services of NABIL Bennett DO with a diagnosis of DIVERTICULITIS OF INTESTINES WITH ABSCESS, SEPSIS . Chief complaint is PAIN. Patient arrived via bed from ER. Monitor applied. Initial assessment completed. Vital signs taken and recorded. NABIL BENNETT DO notified of admission to the unit. Orders received. See assessment for past medical history, medications and allergies. Patient and/or family oriented to unit. [address] visitation policy reviewed. Clothing/patient valuable form completed. SKIN INTACT. ABBY MURPHY
[2019-04-30 18:58] VITALS: BP 148/81
--- NOTE | 2019-04-30 18:59 | NUR ---
PT DECLINES FLU AND PNEUMONIA VACCINATIONS
--- NOTE | 2019-04-30 19:58 | NUR ---
PATIENT COMPLAINS OF 8/10 ABDOMINAL PAIN. MEDICATED WITH 1MG OF DILAUDID. WILL CONTINUE TO MONITOR FOR RELIEF. VOICES NO OTHER CONCERNS AT THIS TIME. RESTING IN BED. CALL LIGHT WITHIN REACH, SIDERAILS UP.
[2019-04-30 20:00] VITALS: BP 148/81
--- NOTE | 2019-04-30 20:09 | NUR ---
DR. BARTON REQUESTED THAT MORPHINE BE D/C'D AND DILAUDID 1MG Q4H BE ADDED ON TOP OF NORCO Q4H FOR PATIENTS ABDOMINAL PAIN
--- NOTE | 2019-04-30 20:30 | NUR ---
DILAUDID EFFECTIVE PER PT
--- NOTE | 2019-04-30 22:10 | NUR ---
Hep Lock discontinued. Site asymptomatic. Pressure applied. Sterile dressing applied. JONATHAN ALDANA
--- NOTE | 2019-04-30 22:22 | NUR ---
IV started right forearm with #22 protective cath after 1 attempts. Site prepped with Chloroprep. Sterile dressing applied. Patient tolerated procedure well. IV NS infusing at 999 cc/hr. JONATHAN ALDANA
--- NOTE | 2019-04-30 23:39 | NUR ---
Patient resting quietly with no c/o discomfort. Respirations easy and regular. Vital signs stable. No overt distress. call light within reach HISSOM,JONATHAN
[2019-05-01] VITALS: BP 123/96
--- NOTE | 2019-05-01 00:09 | NUR ---
PATIENT COMPLAINS OF 9/10 ABDOMINAL PAIN. MEDICATED PER ORDER. WILL CONTINUE TO MONITOR FOR RELIEF. VOICES NO OTHER CONCERNS AT THIS TIME, RESTING IN BED. SIDE RAILS UP. CALL LIGHT WITHIN REACH.
--- NOTE | 2019-05-01 00:45 | NUR ---
PAIN MED EFFECTIVE PER PT
--- NOTE | 2019-05-01 01:40 | NUR ---
24 HR chart check completed.
--- NOTE | 2019-05-01 03:59 | NUR ---
PATIENT STATING SHE FELT ITCHY AFTER THE LAST DOSE OF DILAUDID. SPOKE WITH AND HE STATED TO D/C THE DILAUDID AND PUT IN 2MG IV MORPHINE Q4H PRN FOR ABDOMINAL PAIN
[2019-05-01 04:00] VITALS: BP 126/84
--- NOTE | 2019-05-01 04:18 | NUR ---
PATIENT REFUSING MORPHINE AT THIS TIME. SPOKE WITH DR. BARTON AGAIN REGARDING PAIN MANAGEMENT. STATED TO GIVE HER A NORCO.
--- NOTE | 2019-05-01 04:28 | NUR ---
PT C/O 01/21 ABDOMINAL PAIN. MEDICATED WITH NORCO. WILL CONTINUE TO MONITOR FOR RELIEF. VOICES NO OTHER CONCERNS AT THIS TIME. RESTING IN BED. CALL LIGHT WITHIN REACH
--- NOTE | 2019-05-01 05:38 | NUR ---
NORCO PARTIALLY EFFECTIVE PER PT
[2019-05-01 06:19] LABS: HEMATOCRIT 39.6 % (37.0-47.0); HEMOGLOBIN 12.3 g/dl (12.0-16.0); MEAN CELL VOLUME 89.4 fl (81.0-99.0); MEAN CORPUSCULAR HGB 27.8 pg (27.0-31.0); MEAN CORPUSCULAR HGB CONC 31.1 g/dl (33.0-37.0); MEAN PLATELET VOLUME 9.7 fl (9.6-12.3); PLATELET COUNT AUTOMATED 524 10*3/uL (130-400); RED BLOOD COUNT 4.43 10*6/uL (4.10-5.10); RED CELL DISTRI WIDTH 14.1 % (0-14.5); WHITE BLOOD COUNT 10.6 10*3/uL (4.8-10.8)
[2019-05-01 06:26] LABS: ALBUMIN 2.1 gm/dl (3.1-4.5); BUN 8 mg/dl (7-24); CHLORIDE 108 mmol/L (98-107); CHOLESTEROL 146 mg/dL (<200); CREATININE 0.62 mg/dL (0.55-1.02); PHOSPHOROUS 3.2 mg/dL (2.5-4.9); POTASSIUM 3.6 mmol/L (3.5-5.1); SGOT/AST 32 IU/L (3-35); SGPT/ALT 21 U/L (12-78); SODIUM 139 mmol/L (136-145); TOTAL PROTEIN 6.9 gm/dL (6.4-8.2); TRIGLYCERIDES 160 mg/dl (<150); VLDL CHOLESTEROL 32 mg/dL (6-40)
[2019-05-01 06:27] LABS: ALKALINE PHOSPHATASE 115 U/L (45-117); HDL CHOLESTEROL 28 mg/dl (40-60); LDL CHOLESTEROL 86 mg/dL (9-159)
[2019-05-01 07:44] LABS: BASOPHILS 1 % (0-1); PLATELET SUFFICIENCY HIGH (NORMAL); TOTAL CELLS COUNTED 100 #CELLS
[2019-05-01 08:00] VITALS: BP 110/80
--- NOTE | 2019-05-01 08:39 | NUR ---
SPOKE TO DR CHANCE PER REQUEST OF DR CARLSON TO OBTAIN ORDER FOR DRAIN PLACEMENT R/T DIVERTICULITIS WITH ABSCESS. ORDERS RECEIVED. CHEO IN IR INFORMED.
--- NOTE | 2019-05-01 08:57 | NUR ---
NATALIO FROM XRAY CALLED REGARDING ORDER FOR XRAY RIGHT KNEE. PT STATES IT IS HER LEFT KNEE. ORDER CHANGED NURSING MEASURE
--- NOTE | 2019-05-01 09:00 | NUR ---
Senior Analyst Developer in to talk to patient. Patient states lives at home with . There are few steps in the home. Physician: none [facility]acy: [facility] Home health services: none Patient's level of ADLs: INDEPENDENT Patient has working utilities: all working DME: none Follow-up physician's appointment after d/c: will be made by hospitalist nurse director upon discharge Does patient want to access PORTAL?: no Discharge plan discussed with patient, she is independent in adls and ambulation, she lives at home with , she states she will be returnin home when medically stable and denies any home needs. QUIN BUTLER
--- NOTE | 2019-05-01 09:21 | NUR ---
pt states she does not want morphine because it givwes her a headache and nausea. she does not want dilaudid as it make her itchy. Pt requested toradol because "They gave it to me in ER and it helped." I spoke to Dr Montejo and he said he will look at labs etc and put in orders.
--- NOTE | 2019-05-01 10:59 | NUR ---
PER DR HOLCOMB PT CAN HAVE CLEAR LIQUID DIET
--- NOTE | 2019-05-01 11:50 | NUR ---
PT C/O LOWER ABD PAIN RATED 10/10. ADMINISTERED PO PERCOCET PER ORDER. WILL MONITOR FOR EFFECTIVENESS. CALL DUPREE IN REACH
[2019-05-01 12:00] VITALS: BP 118/74
--- NOTE | 2019-05-01 12:45 | NUR ---
Patient resting quietly with no c/o discomfort. Respirations easy and regular. Vital signs stable. No overt distress. ABBY MURPHY
[2019-05-01 16:00] VITALS: BP 130/78
--- NOTE | 2019-05-01 16:10 | NUR ---
PT AWAKE. C/O LOWER ABDOMINAL PAIN RATED 8/10. ADMISNITERED PO PERCOCET. WILL MONITOR FOR EFFECTIVENESS. JOHNATHAN DRAIN DRESSING DRY/INTACT. SMALL AMOUNT DRAINAGE IN BULB. CALL DUPREE IN REACH
--- NOTE | 2019-05-01 17:00 | NUR ---
Patient resting quietly with no c/o discomfort. Respirations easy and regular. Vital signs stable. No overt distress. ABBY MURPHY
--- NOTE | 2019-05-01 19:15 | NUR ---
JOHNATHAN DRAIN EMPTIED OF 12 ML BLOODY DRAINAGE. PTS JOHNATHAN DRAIN IRRIGATED PER ORDER WITH 10 ML SALINE.
[2019-05-01 20:00] VITALS: BP 119/61
--- NOTE | 2019-05-01 20:44 | NUR ---
PT. ROCKING IN PAIN HOLDING PILLOW TO ABD. TOO SOON FOR PERCOCET. CALLED DR. HAAS AND NOTIFIED HER OF THIS. MORPHINE AND DILAUDID REFUSED BY PATIENT SAYS IT MAKES HER VERY SICK AND HER SKIN CRAWL. PERCOCET INCREASED TO Q4H PRN.
--- NOTE | 2019-05-01 21:08 | NUR ---
PATIENT ROCKING IN PAIN CRYING STATES "THIS IS HOW IT ALWAYS IS." PERCOCET WAS GIVEN FOR ABD PAIN RATED "10+" SEE MAR.
--- NOTE | 2019-05-01 22:00 | NUR ---
REFUSES TO HAVE BEDSIDE GLUCOSE DONE.
[2019-05-02] VITALS: BP 142/71
--- NOTE | 2019-05-02 01:15 | NUR ---
PERCOCET GIVEN PER ORDER FOR ABD PAIN RATED "8". SEE SEP. JOHNATHAN DRAIN STILL INTACT AND DRAINING.
--- NOTE | 2019-05-02 02:15 | NUR ---
PERCOCET EFFECTIVE PER PT. RESTING EASIER.
--- NOTE | 2019-05-02 04:56 | NUR ---
24 HR chart check completed.
--- NOTE | 2019-05-02 06:39 | NUR ---
PERCOCET GIVEN PER ORDER FOR ABD PAIN RATED "7". PT. WAS UP TO BATHROOM VOIDED.
[2019-05-02 07:13] LABS: HEMATOCRIT 38.4 % (37.0-47.0); MEAN CELL VOLUME 89.5 fl (81.0-99.0); MEAN CORPUSCULAR HGB CONC 31.3 g/dl (33.0-37.0); MEAN PLATELET VOLUME 9.6 fl (9.6-12.3); PLATELET COUNT AUTOMATED 496 10*3/uL (130-400); RED BLOOD COUNT 4.29 10*6/uL (4.10-5.10); RED CELL DISTRI WIDTH 14.1 % (0-14.5); WHITE BLOOD COUNT 11.9 10*3/uL (4.8-10.8)
[2019-05-02 07:31] LABS: BUN 7 mg/dl (7-24); CHLORIDE 108 mmol/L (98-107); CREATININE 0.66 mg/dL (0.55-1.02); POTASSIUM 3.8 mmol/L (3.5-5.1); SODIUM 139 mmol/L (136-145)
[2019-05-02 07:37] LABS: ATYPICAL LYMPHS 3 % (0-0); PLATELET SUFFICIENCY HIGH (NORMAL); POLYCHROMASIA SLIGHT; TOTAL CELLS COUNTED 100 #CELLS
[2019-05-02 08:00] VITALS: BP 142/86
--- NOTE | 2019-05-02 08:47 | NUR ---
DR JACKSON IN TO SEE PT. IV FLUIDS AND MECHANICAL INTEGRITY ENGINEER DISCONTINUED
--- NOTE | 2019-05-02 11:46 | NUR ---
PT CONTINUES TO REFUSE BLOOD SUGAR CHECKS. DR JACKSON NOTIFIED
[2019-05-02 12:00] VITALS: BP 157/98
--- NOTE | 2019-05-02 13:35 | NUR ---
PT C/O LOWER ABDOMINAL PAIN RATED 8/10. ADMINISTERED PO PERCOCET PER ORDER. WILL MONITOR FOR EFFECTIVENESS
--- NOTE | 2019-05-02 14:30 | NUR ---
PT STATES MEDICATION WAS EFFECTIVE IN RELEIVING PAIN.
--- NOTE | 2019-05-02 15:00 | NUR ---
ASSUMED CARE FOR THIS PT AT THIS TIME. NO C/O VOICED. CALL LIGHT IN REACH. FAMILY IN VISITING.
--- NOTE | 2019-05-02 15:26 | NUR ---
PTS JOHNATHAN DRAIN IRRIGATED/ASPIRATED PER ORDER.
[2019-05-02 16:00] VITALS: BP 144/84
--- NOTE | 2019-05-02 18:10 | NUR ---
pt medicated w/percocet for c/o abd pain 03/24. pt sitting on side of bed. call light in reach.
--- NOTE | 2019-05-02 19:00 | NUR ---
PT STATES THAT PERCOCET WAS EFFECTIVE FOR PAIN RELIEF. PT SITTING ON SIDE OF BED WATCHING TV.
[2019-05-02 20:00] VITALS: BP 145/74
--- NOTE | 2019-05-02 22:43 | NUR ---
24 HR chart check completed.
[2019-05-03] VITALS: BP 134/68
--- NOTE | 2019-05-03 03:16 | NUR ---
sleeping no acute distress noted.
--- NOTE | 2019-05-03 05:53 | NUR ---
PT. REFUSING TO HAVE BEDSIDE GLUCOSE OBTAINED. PT. LOOKS IN PAIN BUT REFUSED TO TAKE ANY PAIN MEDICATION THAT WAS OFFERRED. PT. STATED "I'VE HAD WORSE PAIN THAN THIS AND I'LL BE FINE."
[2019-05-03 06:33] LABS: BASO # 0.1 10*3/uL (0.0-0.1); BASO % 0.5 % (0.0-1.0); EOS # 0.2 10*3/uL (0.0-0.4); EOS % 1.8 % (1.0-4.0); HEMATOCRIT 39.1 % (37.0-47.0); HEMOGLOBIN 12.6 g/dl (12.0-16.0); LYMPH # 4.3 10*3/uL (1.3-4.4); LYMPH % 35.2 % (27.0-41.0); MEAN CELL VOLUME 88.9 fl (81.0-99.0); MEAN CORPUSCULAR HGB 28.6 pg (27.0-31.0); MEAN CORPUSCULAR HGB CONC 32.2 g/dl (33.0-37.0); MEAN PLATELET VOLUME 9.9 fl (9.6-12.3); MONO # 0.7 10*3/uL (0.1-1.0); MONO % 5.8 % (3.0-9.0); NEUT # 6.9 10*3/uL (2.3-7.9); NEUT % 56.2 % (47.0-73.0); PLATELET COUNT AUTOMATED 516 10*3/uL (130-400); RED CELL DISTRI WIDTH 13.9 % (0-14.5); WHITE BLOOD COUNT 12.3 10*3/uL (4.8-10.8)
[2019-05-03 06:48] LABS: ALBUMIN 2.4 gm/dl (3.1-4.5); ALKALINE PHOSPHATASE 138 U/L (45-117); BUN 7 mg/dl (7-24); CHLORIDE 108 mmol/L (98-107); CREATININE 0.65 mg/dL (0.55-1.02); POTASSIUM 3.8 mmol/L (3.5-5.1); SGOT/AST 15 IU/L (3-35); SGPT/ALT 20 U/L (12-78); SODIUM 139 mmol/L (136-145); TOTAL PROTEIN 7.8 gm/dL (6.4-8.2)
[2019-05-03 08:00] VITALS: BP 145/93
--- NOTE | 2019-05-03 10:55 | NUR ---
FLUSHED DRAINAGE PORT WITH 10CC SALINE. 10CC ASPIRATED BACK THEN PT C/O INCREASED DISCONMFORT TO LOWER ABD. PORT REATTATCHED TO JOHNATHAN SUCTION BULB. PRIOR TO FLUSHING JOHNATHAN BULD EMPTIED FOR 7.5CC MILKY BROWN COLORED FLUID.
--- NOTE | 2019-05-03 11:43 | NUR ---
MEDICATED PT PER PRN ORDER WITH ADVIL FOR C/O LOWER BACK PAIN THAT RATES 8/10 ON PAIN SCALE.
[2019-05-03 12:00] VITALS: BP 150/99
--- NOTE | 2019-05-03 12:30 | NUR ---
PT STATES RELIEF OF PAIN WITH EARLIER ADVIL.
--- NOTE | 2019-05-03 15:03 | NUR ---
ASSUMED CARE FOR THIS PT AT THIS TIME. PT C/O CONSTIPATION. BS HYPO X4. PT STATES SHE TAKES MIRALAX AT HOME AND COLACE IS INEFFECTIVE. FAMILY AT BEDSIDE. CALL LIGHT IN REACH. DR. JACKSON PHONED AND REQUESTED MIRALAX. T.O. RCVD FOR MIRALAX PRN.
--- NOTE | 2019-05-03 15:11 | NUR ---
24 HR chart check completed.
[2019-05-03 16:00] VITALS: BP 142/75
[2019-05-03 20:00] VITALS: BP 148/87
--- NOTE | 2019-05-03 22:20 | NUR ---
PT MEDICATED W/HOME ADVIL FOR C/O ABD PAIN 02/21. JOHNATHAN DRAIN FLUSHED W/OUT DIFF. 10CC OF MILKY BROWN/RED FLUID REMOVED FROM DRAIN AT THIS TIME. CALL LIGHT IN REACH.
[2019-05-04] VITALS: BP 127/60
--- NOTE | 2019-05-04 06:49 | NUR ---
PRN ADVIL GIVEN FOR PT COMPLAINTS OF ABDOMINAL PAIN RATING IT 6/10. CALL LIGHT WITHIN REACH, WILL MONITOR
[2019-05-04 07:11] LABS: HEMATOCRIT 38.5 % (37.0-47.0); MEAN CELL VOLUME 88.3 fl (81.0-99.0); MEAN CORPUSCULAR HGB 27.5 pg (27.0-31.0); MEAN CORPUSCULAR HGB CONC 31.2 g/dl (33.0-37.0); PLATELET COUNT AUTOMATED 503 10*3/uL (130-400); RED BLOOD COUNT 4.36 10*6/uL (4.10-5.10); RED CELL DISTRI WIDTH 13.8 % (0-14.5)
[2019-05-04 07:23] LABS: ALBUMIN 2.3 gm/dl (3.1-4.5); ALKALINE PHOSPHATASE 127 U/L (45-117); BUN 8 mg/dl (7-24); CHLORIDE 107 mmol/L (98-107); CREATININE 0.62 mg/dL (0.55-1.02); POTASSIUM 3.7 mmol/L (3.5-5.1); SGOT/AST 14 IU/L (3-35); SGPT/ALT 18 U/L (12-78); SODIUM 138 mmol/L (136-145); TOTAL PROTEIN 7.4 gm/dL (6.4-8.2)
[2019-05-04 08:00] VITALS: BP 124/89
[2019-05-04 08:09] LABS: ATYPICAL LYMPHS 1 % (0-0); TOTAL CELLS COUNTED 100 #CELLS
[2019-05-04 08:10] LABS: PLATELET SUFFICIENCY HIGH (NORMAL)
--- NOTE | 2019-05-04 09:00 | NUR ---
case management visits with patient, she states she is probable being discharged to home today, discussed with her VNA and she declines any home needs, case management will follow
[2019-05-04 12:00] VITALS: BP 152/87; BP 162/84
[2019-05-04 16:00] VITALS: BP 128/85
[2019-05-04 20:00] VITALS: BP 163/83
--- NOTE | 2019-05-04 20:21 | NUR ---
PATIENT RESTING IN BED. VISITNG WITH FAMILY. NO DISTRESS AT THIS TIME. DENIES NEEDS AT THIS TIME. IV SITE FLUSHED. CALL LIGHT WITHIN REACH, WILL MONITOR
--- NOTE | 2019-05-04 22:00 | NUR ---
PATIENTS JOHNATHAN DRAIN IRRIGATED WITH 10CC OF STERILE SALINE SLOWLY. PATIENT TOLERATED WELL. 10CC PULLED BACK OUT OF LIGHT BROWN CLEAR SALINE. PATIENT TOLERATED WELL. JOHNATHAN DRAIN EMPTIED FOR 15 CC OF BROWN LIQUID
[2019-05-05] VITALS: BP 122/62
--- NOTE | 2019-05-05 05:44 | NUR ---
ATTEMPTED TO CALL DR. CHANCE AT THIS TIME. PATIENT COMPLAINING OF BURNING AND PAIN AT THE SITE OF JOHNATHAN DRAIN. SMALL AMOUNT OF DRAINAGE IS AT SITE OF INSERTION. NO ANSWER, WILL RETRY. PRN PERCOCET GIVEN FOR PT COMPLAINTS OF PAIN IN THE ABDOMEN. CALL LIGHT WITHIN REACH, WILL MONITOR
--- NOTE | 2019-05-05 05:49 | NUR ---
VOICEMAIL LEFT WITH DR. CHANCE AT THIS TIME. AWAITING CALL BACK
--- NOTE | 2019-05-05 05:52 | NUR ---
NOTIFIED DR. JACKSON AT THIS TIME OF PATIENT CONCERNS AND RELAYED TO HIM DR. CHANCE'S NOTE PERTAINING TO CT A/P WITH IV CONTRAST IN CASE OF QUESTION IF DRAIN IS IN PLACE. DR. JACKSON STATED THAT HE WOULD ORDER THE SCAN
--- NOTE | 2019-05-05 06:38 | NUR ---
DR. CHANCE AT THIS TIME NOTIFIED OF ISSUE WITH PATIENT. NOTIFIED HIM THAT CT OF ABD/PEL ORDERED FOR PATIENT AND SHE HAD ALREADY GONE DONE. HE STATED THAT HE WOULD LIKE THE RESULTS OF THE CT SCAN WHEN IT WAS BACK
[2019-05-05 06:39] LABS: HEMATOCRIT 38.7 % (37.0-47.0); HEMOGLOBIN 12.3 g/dl (12.0-16.0); MEAN CELL VOLUME 89.2 fl (81.0-99.0); MEAN CORPUSCULAR HGB 28.3 pg (27.0-31.0); MEAN CORPUSCULAR HGB CONC 31.8 g/dl (33.0-37.0); MEAN PLATELET VOLUME 10.2 fl (9.6-12.3); PLATELET COUNT AUTOMATED 520 10*3/uL (130-400); RED BLOOD COUNT 4.34 10*6/uL (4.10-5.10); WHITE BLOOD COUNT 11.9 10*3/uL (4.8-10.8)
[2019-05-05 07:59] LABS: ATYPICAL LYMPHS 2 % (0-0); BASOPHILS 1 % (0-1); TOTAL CELLS COUNTED 100 #CELLS
[2019-05-05 08:00] VITALS: BP 148/90; BP 156/79
[2019-05-05 08:00] LABS: PLATELET SUFFICIENCY HIGH (NORMAL)
--- NOTE | 2019-05-05 08:20 | NUR ---
CALLED DR CHANCE AND INFORMED HIM OF THE RESULTS OF THE PTS WBC AND CT ABD/PEL. HE STATED HE WILL CONTACT DR CARLSON TO REVIEW CT. BABAK CLANCY NOTIFIED. NO NEW ORDERS.
--- NOTE | 2019-05-05 09:00 | NUR ---
case management visits with patient, she denies any home needs at this time
[2019-05-05 12:00] VITALS: BP 126/87; BP 155/95
--- NOTE | 2019-05-05 16:00 | NUR ---
DR CHANCE IN TO SEE PT. JOHNATHAN DRAIN REMOVED. DRESSING APPLIED. DR CHANCE INFORMED PT THAT SHE WILL BE DISCHARGED TODAY. DR CHANCE URGED PT TO SEE SURGEON AT 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 PT WILL FOLLOW UP IN [facility]
[2019-05-05] MEDS ORDERED: Percocet 325 MG1 TAB PO (16:40)
[2019-05-05] MEDS ORDERED: FLAGYL500 MG PO (16:40)
[2019-05-05] MEDS ORDERED: CIPRO500 MG PO (16:40)
--- NOTE | 2019-05-05 17:31 | NUR ---
SPOKE TO BABAK GARCIA REAGRDING DISCHARGE MEDICATIONS. [id number] RECEIVED
--- NOTE | 2019-05-05 17:56 | NUR ---
PT DC FROM THE FLOOR. PT LEFT AMBULATORY IN THE COMPANY OF HER SPOUSE. PT GIVEN FOLLOW UP INSTRUCTIONS AND VOICED UNDERSTANDING. INFORMED PATIENT THAT PRESCRIPTIONS WILL BE READY IN THE MORNING IN THE OUTPATIENT PHARMACY.
== END 2019-05-05 17:56 | disposition home or self-care (01) | DRG 871 ==
LOC: ED 14:51 → 4E 18:07 → EDHOLD 18:07 → 4E 18:18
PROVIDERS: Emergency Medicine; Physician Assistant; Registered Nurse; Student in an Organized Health Care Education/Training Program; ADMIT Internal Medicine
PROC: 0D9N3ZZ Drainage of Sigmoid Colon, Percutaneous Approach (ICD-10-PCS; principal; 2019-05-01)
DX: A41.9 Sepsis, unspecified organism (principal); E43 Unspecified severe protein-calorie malnutrition; K57.20 Diverticulitis of large intestine with perforation and abscess without bleeding; R65.20 Severe sepsis without septic shock; D69.6 Thrombocytopenia, unspecified; Z71.6 Tobacco abuse counseling; R31.21 Asymptomatic microscopic hematuria; K76.0 Fatty (change of) liver, not elsewhere classified; K57.90 Diverticulosis of intestine, part unspecified, without perforation or abscess without bleeding; I10 Essential (primary) hypertension; J44.9 Chronic obstructive pulmonary disease, unspecified; F17.210 Nicotine dependence, cigarettes, uncomplicated; E11.65 Type 2 diabetes mellitus with hyperglycemia; E66.01 Morbid (severe) obesity due to excess calories; Z91.040 Latex allergy status; Z90.49 Acquired absence of other specified parts of digestive tract; Z98.51 Tubal ligation status; Z83.3 Family history of diabetes mellitus; Z82.49 Family history of ischemic heart disease and other diseases of the circulatory system; Z80.1 Family history of malignant neoplasm of trachea, bronchus and lung; Z80.59 Family history of malignant neoplasm of other urinary tract organ

== ENCOUNTER → 2019-05-19 | Outpatient (CLI) | payer SELFPAY ==
[~2019-05-19] MED LIST changes: +Percocet 325 MG1 TAB PO
== END | disposition home or self-care (01) ==
LOC: RESCLI 01:35
DX: K57.20 Diverticulitis of large intestine with perforation and abscess without bleeding (principal); E11.65 Type 2 diabetes mellitus with hyperglycemia; E55.9 Vitamin D deficiency, unspecified; I10 Essential (primary) hypertension; B37.3 Candidiasis of vulva and vagina; Z72.0 Tobacco use; Z79.899 Other long term (current) drug therapy

== ENCOUNTER → 2019-09-08 | Outpatient (CLI) | payer OTHER ==
[2019-09-08 10:31] LABS: HEMATOCRIT 46.5 % (37.0-47.0); HEMOGLOBIN 14.8 g/dl (12.0-16.0); MEAN CELL VOLUME 89.9 fl (81.0-99.0); MEAN CORPUSCULAR HGB 28.6 pg (27.0-31.0); MEAN CORPUSCULAR HGB CONC 31.8 g/dl (33.0-37.0); MEAN PLATELET VOLUME 10.1 fl (9.6-12.3); PLATELET COUNT AUTOMATED 495 10*3/uL (130-400); RED BLOOD COUNT 5.17 10*6/uL (4.10-5.10); RED CELL DISTRI WIDTH 14.2 % (0-14.5); WHITE BLOOD COUNT 13.7 10*3/uL (4.8-10.8)
[2019-09-08 11:00] LABS: ALBUMIN 3.2 gm/dl (3.1-4.5); BUN 11 mg/dl (7-24); CHLORIDE 106 mmol/L (98-107); CREATININE 0.77 mg/dL (0.55-1.02); POTASSIUM 4.1 mmol/L (3.5-5.1); SGPT/ALT 22 U/L (12-78); SODIUM 138 mmol/L (136-145)
[2019-09-08 11:05] LABS: ALKALINE PHOSPHATASE 125 U/L (45-117); CHOLESTEROL 179 mg/dL (<200); HDL CHOLESTEROL 39 mg/dl (40-60); LDL CHOLESTEROL 112 mg/dL (9-159); SGOT/AST 17 IU/L (3-35); TOTAL PROTEIN 8.4 gm/dL (6.4-8.2); TRIGLYCERIDES 142 mg/dl (<150); VLDL CHOLESTEROL 28 mg/dL (6-40)
[2019-09-08 11:13] LABS: PLATELET SUFFICIENCY HIGH (NORMAL); TOTAL CELLS COUNTED 100 #CELLS
[2019-09-08 12:49] LABS: BACTERIA 3+
[2019-09-08 12:50] LABS: BILIRUBIN NEGATIVE (NEGATIVE); BLOOD 3+ (NEGATIVE); CLARITY SL CLOUDY (CLEAR); COLOR YELLOW (YELLOW); GLUCOSE NEGATIVE (NEGATIVE); KETONE NEGATIVE (NEGATIVE); WBC 31-40 wbc/hpf (0-5)
[2019-09-08 12:51] LABS: LEUKO ESTERASE 2+ (NEGATIVE); NITRITE NEGATIVE (NEGATIVE); UROBILINOGEN 0.2 E.U./dl (0.2-1.0)
== END | disposition home or self-care (01) ==
LOC: RESCLI 00:23 → LAB 00:23 → RESCLI 06:45
PROVIDERS: Hospitalist
DX: Z12.11 Encounter for screening for malignant neoplasm of colon (principal); Z12.39 Encounter for other screening for malignant neoplasm of breast; E11.65 Type 2 diabetes mellitus with hyperglycemia; I10 Essential (primary) hypertension; M54.2 Cervicalgia; K43.2 Incisional hernia without obstruction or gangrene; E55.9 Vitamin D deficiency, unspecified; K59.00 Constipation, unspecified; N95.0 Postmenopausal bleeding; F17.200 Nicotine dependence, unspecified, uncomplicated; Z79.899 Other long term (current) drug therapy; Z90.49 Acquired absence of other specified parts of digestive tract

== ENCOUNTER 2019-10-09 10:20 | Inpatient (IN) | payer OTHER ==
[~2019-10-09] VITALS: Ht 175.2 cm; Wt 113.6 kg
[2019-10-09 10:45] VITALS: BP 154/94
--- NOTE | 2019-10-09 11:21 | NUR ---
ROSCOE GIVEN BY CHING DUNLAP RN.
[2019-10-09 11:43] LABS: BASO # 0.1 10*3/uL (0.0-0.1); BASO % 0.6 % (0.0-1.0); EOS # 0.1 10*3/uL (0.0-0.4); EOS % 0.8 % (1.0-4.0); HEMATOCRIT 43.4 % (37.0-47.0); HEMOGLOBIN 13.7 g/dl (12.0-16.0); LYMPH # 3.8 10*3/uL (1.3-4.4); LYMPH % 21.4 % (27.0-41.0); MEAN CELL VOLUME 90.6 fl (81.0-99.0); MEAN CORPUSCULAR HGB 28.6 pg (27.0-31.0); MEAN CORPUSCULAR HGB CONC 31.6 g/dl (33.0-37.0); MEAN PLATELET VOLUME 9.7 fl (9.6-12.3); MONO # 1.2 10*3/uL (0.1-1.0); MONO % 6.9 % (3.0-9.0); NEUT # 12.2 10*3/uL (2.3-7.9); NEUT % 69.7 % (47.0-73.0); PLATELET COUNT AUTOMATED 680 10*3/uL (130-400); RED BLOOD COUNT 4.79 10*6/uL (4.10-5.10); WHITE BLOOD COUNT 17.5 10*3/uL (4.8-10.8)
[2019-10-09 11:54] LABS: ACT PARTIAL THROMBO TIME 27.9 SECONDS (20.0-32.1)
[2019-10-09 12:00] VITALS: BP 152/90
[2019-10-09 13:14] LABS: ALBUMIN 2.4 gm/dl (3.1-4.5); ALKALINE PHOSPHATASE 154 U/L (45-117); BUN 11 mg/dl (7-24); CHLORIDE 105 mmol/L (98-107); CREATININE 0.62 mg/dL (0.55-1.02); LIPASE 80 U/L (73-393); SGOT/AST 20 IU/L (3-35); SGPT/ALT 23 U/L (12-78); SODIUM 138 mmol/L (136-145); TOTAL PROTEIN 8.5 gm/dL (6.4-8.2); TROPONIN I < 0.015 ng/ml (<0.045)
--- NOTE | 2019-10-09 13:23 | NUR ---
PT REFUSED FENTENATL, REQUESTED TOADOL, DR DUNLAP NOTIFED, TOADOL ADMINISTERED PER ORDER.
[2019-10-09 14:00] VITALS: BP 150/88
--- NOTE | 2019-10-09 14:01 | NUR ---
PT STATES TORADOL EFFECTIVE FOR PAIN.
[2019-10-09] MEDS ORDERED: LISINOPRIL5 MG PO (14:02)
--- NOTE | 2019-10-09 14:10 | NUR ---
PTS KEYS WERE GIVEN TO HER DAUGHTER FLORA VONNIE SUTHERLAND CNA. BAG OF BELONGINGS BROUGHT TO PT FROM DAUGHTER.
[2019-10-09 14:36] VITALS: BP 114/76; BP 150/88
--- NOTE | 2019-10-09 15:22 | NUR ---
DR CHANCE NOTIFIED OF CONSULT.
--- NOTE | 2019-10-09 15:22 | NUR ---
Time: 0 A 48 year old FEMALE admitted to under services of GULSHAN CLARK DO. Pt. arrived via ambulatory from ER. Chief complaint: ABDOMINAL PAIN. JUANCHO JC
[2019-10-09 16:00] VITALS: BP 131/87
--- NOTE | 2019-10-09 19:00 | NUR ---
ASSUMED CARE FOR THIS PT AT THIS TIME. PT RESTING QUIETLY IN BED. NO C/O VOICED. CALL LIGHT IN REACH.
[2019-10-09 20:00] VITALS: BP 115/51
[2019-10-10] VITALS: BP 106/64
--- NOTE | 2019-10-10 00:14 | NUR ---
PT C/O LUQ PAIN, STATES IT FEELS LIKE PULLING, 12/22. MEDICATED W/650MG TYLENOL PO. CALL LIGHT IN REACH.
[2019-10-10 06:59] LABS: HEMOGLOBIN 11.2 g/dl (12.0-16.0); MEAN CELL VOLUME 89.3 fl (81.0-99.0); MEAN CORPUSCULAR HGB 27.8 pg (27.0-31.0); MEAN CORPUSCULAR HGB CONC 31.1 g/dl (33.0-37.0); MEAN PLATELET VOLUME 9.8 fl (9.6-12.3); PLATELET COUNT AUTOMATED 570 10*3/uL (130-400); RED BLOOD COUNT 4.03 10*6/uL (4.10-5.10); RED CELL DISTRI WIDTH 14.1 % (0-14.5); WHITE BLOOD COUNT 17.4 10*3/uL (4.8-10.8)
[2019-10-10 07:22] LABS: CHLORIDE 110 mmol/L (98-107); POTASSIUM 3.5 mmol/L (3.5-5.1); SODIUM 138 mmol/L (136-145)
[2019-10-10 07:28] LABS: ALBUMIN 1.8 gm/dl (3.1-4.5); ALKALINE PHOSPHATASE 127 U/L (45-117); BUN 9 mg/dl (7-24); CHOLESTEROL 123 mg/dL (<200); CREATININE 0.55 mg/dL (0.55-1.02); HDL CHOLESTEROL 26 mg/dl (40-60); LDL CHOLESTEROL 78 mg/dL (9-159); PHOSPHOROUS 2.9 mg/dL (2.5-4.9); SGOT/AST 20 IU/L (3-35); SGPT/ALT 17 U/L (12-78); TOTAL PROTEIN 6.8 gm/dL (6.4-8.2); TRIGLYCERIDES 96 mg/dl (<150); VLDL CHOLESTEROL 19 mg/dL (6-40)
[2019-10-10 07:31] LABS: BASOPHILS 1 % (0-1); PLATELET SUFFICIENCY HIGH (NORMAL); TOTAL CELLS COUNTED 100 #CELLS
[2019-10-10 08:00] VITALS: BP 117/70
--- NOTE | 2019-10-10 09:24 | NUR ---
Casket Assembler Metal in to talk to patient. Patient states lives at HOME with AND DAUGHTER. There are 3 steps in the home. Physician: [facility] Home health services: NONE Patient's level of ADLs: INDEPENDENT Patient has working utilities: YES DME: NONE Follow-up physician's appointment after d/c: WILL BE MADE BY HOSPITALIST NURSE DIRECTOR ON DISCHARGE Does patient want to access PORTAL?: NO Discharge plan PT LIVES AT HOME WITH AND DAUGHTER AND IS INDEPENDENT IN HER CARE. DENIES SHE WILL HAVE ANY NEEDS ON DISCHARGE. PLAN IS TO RETURN HOME WHEN MEDICALLY STABLE. WILL CONTINUE TO FOLLOW. STATES SHE WILL HAVE A RIDE HOME.. JASWINDER QUIGLEY
--- NOTE | 2019-10-10 10:04 | NUR ---
C/o nausea. Medicated with zofran iv per prn order. Denies need for pain medication at this time. States she is having slight pain at old incision sites but does not need anything for pain.
--- NOTE | 2019-10-10 11:00 | NUR ---
States that zofran effective.
--- NOTE | 2019-10-10 11:25 | NUR ---
Medicated with tylenol per prn order for complaints of pain to lower abdominal quads. States pain feels like a pulling. Pain /. Requested tylenol states she does not like the way the other pain meds make her feel.
[2019-10-10 11:29] LABS: BILIRUBIN NEGATIVE (NEGATIVE); BLOOD 3+ (NEGATIVE); CLARITY SL CLOUDY (CLEAR); COLOR YELLOW (YELLOW); GLUCOSE NEGATIVE (NEGATIVE); KETONE NEGATIVE (NEGATIVE); LEUKO ESTERASE 1+ (NEGATIVE); NITRITE NEGATIVE (NEGATIVE); SPECIFIC GRAVITY 1.025 (1.005-1.030); UROBILINOGEN 0.2 E.U./dl (0.2-1.0)
[2019-10-10 11:40] LABS: RBC TNTC rbc/hpf (0-2); WBC TNTC wbc/hpf (0-5)
[2019-10-10 12:00] VITALS: BP 94/59
--- NOTE | 2019-10-10 12:50 | NUR ---
Lab was up and repeat blood cultures were drawn.
--- NOTE | 2019-10-10 13:39 | NUR ---
Pt states she wants something to eat. Aides reported that pt is drinking mountain dew. Pt made statement that she is going to go to the vending machine. I spoke with Dr. Childs who states to call Dr. Reina regarding this. I spoke with Dr. Reina who states he is not virtualization consultant. States Dr. Caicedo will see pt this weekend.
--- NOTE | 2019-10-10 15:06 | NUR ---
Dr. Caicedo was in and examined pt. States that pt could have clear liquid diet today and if she tolerates that she may be started on solids tomorrow.
--- NOTE | 2019-10-10 15:48 | NUR ---
Pt up walking in doll.
[2019-10-10 16:00] VITALS: BP 131/84
--- NOTE | 2019-10-10 17:53 | NUR ---
Medicated with tylenol per prn order for complaint of mild abdominal pain pt states it hurts on left lower quad. States 10/22. Denies nausea.
[2019-10-10 20:00] VITALS: BP 135/94
--- NOTE | 2019-10-10 21:38 | NUR ---
TYLENOL ADMINISTERED FOR PT C/O LLQ ABDOMINAL PAIN RATED 3/10. WILL CONTINUE TO MONITOR.
--- NOTE | 2019-10-10 23:30 | NUR ---
PT ASLEEP, NO SIGNS OF DISCOMFORT OR DISTRESS NOTED.
[2019-10-11] VITALS: BP 110/50
--- NOTE | 2019-10-11 04:55 | NUR ---
NORCO ADMINISTERED FOR PT C/O LLQ ABDOMINAL PAIN. PT TEARFUL STATING SHE "FEELS LIKE HER STOMACH IS RUMBLING", WHEN ASKED WHAT THE PAIN FEELS LIKE. STATES ITS RATED AN 8/10. WILL MONITOR.
[2019-10-11 06:51] LABS: BASO # 0.1 10*3/uL (0.0-0.1); BASO % 0.8 % (0.0-1.0); EOS # 0.1 10*3/uL (0.0-0.4); EOS % 1.2 % (1.0-4.0); HEMATOCRIT 36.4 % (37.0-47.0); HEMOGLOBIN 11.4 g/dl (12.0-16.0); LYMPH # 3.5 10*3/uL (1.3-4.4); MEAN CELL VOLUME 89.2 fl (81.0-99.0); MEAN CORPUSCULAR HGB 27.9 pg (27.0-31.0); MEAN CORPUSCULAR HGB CONC 31.3 g/dl (33.0-37.0); MONO # 1.1 10*3/uL (0.1-1.0); MONO % 9.1 % (3.0-9.0); NEUT # 7.1 10*3/uL (2.3-7.9); NEUT % 59.5 % (47.0-73.0); PLATELET COUNT AUTOMATED 594 10*3/uL (130-400); RED BLOOD COUNT 4.08 10*6/uL (4.10-5.10); RED CELL DISTRI WIDTH 13.9 % (0-14.5); WHITE BLOOD COUNT 11.9 10*3/uL (4.8-10.8)
[2019-10-11 06:56] LABS: BUN 7 mg/dl (7-24); CHLORIDE 110 mmol/L (98-107); CREATININE 0.51 mg/dL (0.55-1.02); POTASSIUM 3.5 mmol/L (3.5-5.1); SODIUM 139 mmol/L (136-145)
[2019-10-11 08:00] VITALS: BP 127/77
[2019-10-11] MEDS ORDERED: CIPRO500 MG PO (12:50)
[2019-10-11] MEDS ORDERED: FLAGYL500 MG PO (12:50)
[2019-10-11] MEDS ORDERED: VITAMIN D3125 MC1 PO (12:50)
--- NOTE | 2019-10-11 13:26 | NUR ---
PT DISCHARGED AT THIS TIME. HEPLOCK REMOVED. DISCHARGE INTRUCTIONS DISCUSSED WITH PATIENT. PT REFUSED WHEELCHAIR AND AMBULATED OFF THE FLOOR.
== END 2019-10-11 13:26 | disposition home or self-care (01) | DRG 720 ==
LOC: ED 10:20 → 4E 13:31 → EDHOLD 13:31 → 4E 13:48
PROVIDERS: Emergency Medicine; Internal Medicine; Student in an Organized Health Care Education/Training Program; ADMIT Internal Medicine
DX: A41.9 Sepsis, unspecified organism (principal); R74.8 Abnormal levels of other serum enzymes; D47.3 Essential (hemorrhagic) thrombocythemia; E66.9 Obesity, unspecified; K76.0 Fatty (change of) liver, not elsewhere classified; I10 Essential (primary) hypertension; J44.9 Chronic obstructive pulmonary disease, unspecified; E11.65 Type 2 diabetes mellitus with hyperglycemia; K57.20 Diverticulitis of large intestine with perforation and abscess without bleeding; E43 Unspecified severe protein-calorie malnutrition; D64.9 Anemia, unspecified; E87.8 Other disorders of electrolyte and fluid balance, not elsewhere classified; E55.9 Vitamin D deficiency, unspecified; Z91.040 Latex allergy status; Z91.048 Other nonmedicinal substance allergy status; Z90.49 Acquired absence of other specified parts of digestive tract; Z79.4 Long term (current) use of insulin; Z71.6 Tobacco abuse counseling; Z82.49 Family history of ischemic heart disease and other diseases of the circulatory system; Z80.59 Family history of malignant neoplasm of other urinary tract organ; Z83.3 Family history of diabetes mellitus; Z68.37 Body mass index [BMI] 37.0-37.9, adult; Z79.899 Other long term (current) drug therapy; Z88.0 Allergy status to penicillin

== ENCOUNTER → 2020-02-24 | Outpatient (CLI) | payer OTHER ==
[~2020-02-24] MED LIST changes: +VITAMIN D3125 MC1 PO
== END | disposition home or self-care (01) ==
LOC: RESCLI 01:23
DX: N95.0 Postmenopausal bleeding (principal); I10 Essential (primary) hypertension; N39.41 Urge incontinence; E11.65 Type 2 diabetes mellitus with hyperglycemia; K59.00 Constipation, unspecified; G62.9 Polyneuropathy, unspecified; E55.9 Vitamin D deficiency, unspecified; F17.200 Nicotine dependence, unspecified, uncomplicated; G25.81 Restless legs syndrome; Z79.899 Other long term (current) drug therapy; Z90.49 Acquired absence of other specified parts of digestive tract; Z88.0 Allergy status to penicillin; Z88.5 Allergy status to narcotic agent

== ENCOUNTER 2020-03-20 07:48 | Inpatient (IN) | payer OTHER ==
[~2020-03-20] VITALS: Ht 175.3 cm; Wt 116.2 kg
[2020-03-20 07:56] VITALS: BP 138/115
[2020-03-20 08:29] LABS: BASO # 0.1 10*3/uL (0.0-0.1); BASO % 0.3 % (0.0-1.0); EOS % 0.2 % (1.0-4.0); HEMATOCRIT 50.5 % (37.0-47.0); LYMPH # 3.6 10*3/uL (1.3-4.4); LYMPH % 19.6 % (27.0-41.0); MEAN CELL VOLUME 87.7 fl (81.0-99.0); MEAN CORPUSCULAR HGB 28.5 pg (27.0-31.0); MEAN CORPUSCULAR HGB CONC 32.5 g/dl (33.0-37.0); MEAN PLATELET VOLUME 9.9 fl (9.6-12.3); MONO # 0.7 10*3/uL (0.1-1.0); NEUT # 13.7 10*3/uL (2.3-7.9); NEUT % 75.5 % (47.0-73.0); PLATELET COUNT AUTOMATED 601 10*3/uL (130-400); RED BLOOD COUNT 5.76 10*6/uL (4.10-5.10); RED CELL DISTRI WIDTH 14.1 % (0-14.5); WHITE BLOOD COUNT 18.1 10*3/uL (4.8-10.8)
--- NOTE | 2020-03-20 08:30 | NUR ---
PT UP TO BSC WITH DIARRHEA. GAIT STEADY AT THIS TIME.
[2020-03-20 08:40] LABS: ACT PARTIAL THROMBO TIME 27.5 SECONDS (20.0-32.1)
[2020-03-20 08:45] LABS: ALBUMIN 3.3 gm/dl (3.1-4.5); ALKALINE PHOSPHATASE 136 U/L (45-117); BUN 10 mg/dl (7-24); CHLORIDE 105 mmol/L (98-107); CREATININE 0.81 mg/dL (0.55-1.02); LIPASE 110 U/L (73-393); POTASSIUM 3.8 mmol/L (3.5-5.1); SGOT/AST 19 IU/L (3-35); SGPT/ALT 19 U/L (12-78); SODIUM 135 mmol/L (136-145); TOTAL PROTEIN 9.1 gm/dL (6.4-8.2)
--- NOTE | 2020-03-20 09:16 | NUR ---
PT UNABLE TO VOID AT THIS TIME.
--- NOTE | 2020-03-20 11:13 | NUR ---
PT DENIES THE NEED TO URINATE AT THIS TIME.
[2020-03-20 11:43] VITALS: BP 142/98
[2020-03-20 12:10] VITALS: BP 132/60
--- NOTE | 2020-03-20 12:10 | NUR ---
Time: 0 A 49 year old FEMALE admitted to 5E under services of RAMONITA KOHLER DO. Pt. arrived via stretcher from ER. Chief complaint: CRAMPING PAIN TO CENTER OF ABDOMEN FOR PAST 4 DAYS, NAUSEA, VOMITING, DIARRHEA, UNABLE TO EAT. GIOVANNA MERRILL
--- NOTE | 2020-03-20 12:39 | NUR ---
MEDICATED WITH PRN PO NORCO FOR ABDOMINAL PAIN AND IV ZOFRAN FOR NAUSEA.
[2020-03-20] MEDS ORDERED: GABAPENTIN100 M2 PO (13:30)
[2020-03-20] MEDS ORDERED: OXYBUTYNIN5 MG PO (13:31)
[2020-03-20] MEDS ORDERED: BYETTA5 MCG/0.02 SC (13:32)
[2020-03-20] MEDS ORDERED: LANTUS SOL100 UNIT/1 SC (13:33)
[2020-03-20] MEDS ORDERED: INVOKANA300 M1 PO (13:33)
[2020-03-20 13:39] VITALS: BP 132/60
--- NOTE | 2020-03-20 13:39 | NUR ---
PATIENT RESTING WITH NO S/S PAIN OR NAUSEA; NORCO AND ZOFRAN GIVEN EARLIER EFFECTIVE.
[2020-03-20 16:00] VITALS: BP 137/71
--- NOTE | 2020-03-20 16:56 | NUR ---
MEDICATED WITH PRN PO NORCO FOR ABDOMINAL PAIN.
--- NOTE | 2020-03-20 17:50 | NUR ---
PRN PO NORCO SOMEWHAT EFFECTIVE, PER PATIENT. PATIENT INSTRUCTED THAT SAMPLES NEEDED FOR URINE UA/CULTURE AND STOOL SAMPLES ALSO NEEDED.
--- NOTE | 2020-03-20 18:49 | NUR ---
MEDICATED WITH PRN IV ZOFRAN FOR NAUSEA.
[2020-03-20 20:00] VITALS: BP 122/78
--- NOTE | 2020-03-20 20:29 | NUR ---
24 HR chart check completed.
--- NOTE | 2020-03-20 21:00 | NUR ---
RESTING IN BED WITH NO ACUTE DISTRESS NOTED. RESPIRATIONS EASY. LUNGS DIMINISHED, CLEAR. PULSE OX 97% RA. ABD SOFT WITH NORMO BS, C/O RECURRENT N/D BUT NO ACTIVE VOMITING. CALL LIGHT WITHIN REACH. NO VOICED COMPLAINTS
[2020-03-21] VITALS: BP 121/74
--- NOTE | 2020-03-21 | NUR ---
REMAINS AWAKE, SITTING AT BEDSIDE. C/O ABD CRAMPING/PAIN BUT DENIES NEED FOR PAIN MEDS. CALL LIGHT WITHIN REACH.
--- NOTE | 2020-03-21 01:00 | NUR ---
SLEEPING. NO DISTRESS NOTED. RESPIRATIONS EASY. CALL LIGHT WITHIN REACH.
--- NOTE | 2020-03-21 06:00 | NUR ---
SLEPT THROUGHOUT NIGHT WITH NO DISTRESS NOTED. CLAIMS 2-3 LOOSE STOOLS THROUGHOUT NIGHT BUT NO SPECIMEN PROVIDED - AGAIN REMINDED OF NEED. CALL LIGHT WITHIN REACH. NO VOICED COMPLAINTS THIS SHIFT
[2020-03-21 06:31] LABS: BASO # 0.1 10*3/uL (0.0-0.1); BASO % 0.4 % (0.0-1.0); EOS # 0.1 10*3/uL (0.0-0.4); HEMATOCRIT 41.1 % (37.0-47.0); LYMPH # 3.8 10*3/uL (1.3-4.4); LYMPH % 33.4 % (27.0-41.0); MEAN CELL VOLUME 89.5 fl (81.0-99.0); MEAN CORPUSCULAR HGB 28.5 pg (27.0-31.0); MEAN CORPUSCULAR HGB CONC 31.9 g/dl (33.0-37.0); MONO # 0.8 10*3/uL (0.1-1.0); MONO % 6.7 % (3.0-9.0); NEUT # 6.6 10*3/uL (2.3-7.9); NEUT % 58.1 % (47.0-73.0); PLATELET COUNT AUTOMATED 439 10*3/uL (130-400); RED BLOOD COUNT 4.59 10*6/uL (4.10-5.10); RED CELL DISTRI WIDTH 14.1 % (0-14.5); WHITE BLOOD COUNT 11.3 10*3/uL (4.8-10.8)
[2020-03-21 06:53] LABS: BUN 8 mg/dl (7-24); CHLORIDE 109 mmol/L (98-107); CHOLESTEROL 122 mg/dL (<200); CREATININE 0.66 mg/dL (0.55-1.02); POTASSIUM 3.6 mmol/L (3.5-5.1); SODIUM 137 mmol/L (136-145); TRIGLYCERIDES 137 mg/dl (<150); VLDL CHOLESTEROL 27 mg/dL (6-40)
[2020-03-21 07:03] LABS: HDL CHOLESTEROL 33 mg/dl (40-60); LDL CHOLESTEROL 62 mg/dL (9-159)
[2020-03-21 07:25] LABS: BILIRUBIN NEGATIVE; CLARITY CLOUDY (CLEAR); COLOR YELLOW (YELLOW); GLUCOSE NEGATIVE; KETONE NEGATIVE
[2020-03-21 07:26] LABS: BACTERIA 1+; BLOOD 3+ (NEGATIVE); LEUKO ESTERASE 3+ (NEGATIVE); NITRITE NEGATIVE (NEGATIVE); SPECIFIC GRAVITY 1.005 (1.001-1.030); WBC 51-100 wbc/hpf (0-5)
[2020-03-21 08:00] VITALS: BP 115/69
[2020-03-21 08:09] LABS: VITAMIN D, 25-HYDROXY 23.5 ng/mL (30-100)
--- NOTE | 2020-03-21 08:48 | NUR ---
PT REFUSED LOVENOX INJECTION DESPITE NURSING EDUCATION.
[2020-03-21] MEDS ORDERED: CIPRO500 MG PO ×3 (11:15→11:48)
[2020-03-21] MEDS ORDERED: FLAGYL500 MG PO ×3 (11:15→11:48)
[2020-03-21 12:00] VITALS: BP 111/72
--- NOTE | 2020-03-21 12:05 | NUR ---
Discharge instructions reviewed with patient/family. Patient receptive and verbalizes understanding. Follow-up care arranged. Written instructions given to patient/family. MILTON RUIZ.
== END 2020-03-21 12:05 | disposition home or self-care (01) | DRG 249 ==
LOC: ED 07:48 → 5E 10:35 → EDHOLD 10:35 → 5E 10:49
PROVIDERS: Emergency Medicine; Internal Medicine; ADMIT Emergency Medicine; ATTEND Emergency Medicine
DX: K52.9 Noninfective gastroenteritis and colitis, unspecified (principal); R65.10 Systemic inflammatory response syndrome (SIRS) of non-infectious origin without acute organ dysfunction; E87.2 Acidosis; D47.3 Essential (hemorrhagic) thrombocythemia; D75.1 Secondary polycythemia; K76.0 Fatty (change of) liver, not elsewhere classified; F17.210 Nicotine dependence, cigarettes, uncomplicated; K57.90 Diverticulosis of intestine, part unspecified, without perforation or abscess without bleeding; E87.8 Other disorders of electrolyte and fluid balance, not elsewhere classified; E11.65 Type 2 diabetes mellitus with hyperglycemia; I10 Essential (primary) hypertension; Z68.37 Body mass index [BMI] 37.0-37.9, adult; Z71.6 Tobacco abuse counseling; Z88.1 Allergy status to other antibiotic agents; Z91.040 Latex allergy status; Z88.8 Allergy status to other drugs, medicaments and biological substances; Z88.0 Allergy status to penicillin; Z90.49 Acquired absence of other specified parts of digestive tract; Z98.51 Tubal ligation status; Z82.49 Family history of ischemic heart disease and other diseases of the circulatory system

== ENCOUNTER 2020-04-05 07:42 | Inpatient (IN) | payer OTHER ==
[~2020-04-05] VITALS: Ht 175.2 cm; Wt 113.0 kg
[~2020-04-05 07:42] MED LIST changes: +BYETTA5 MCG/0.02 SC; +GABAPENTIN100 M2 PO; +INVOKANA300 M1 PO; +LANTUS SOL100 UNIT/1 SC; +OXYBUTYNIN5 MG PO
[2020-04-05 07:47] VITALS: BP 145/91
--- NOTE | 2020-04-05 08:00 | NUR ---
ABDOMINAL PAIN 10/10 PER PT.
--- NOTE | 2020-04-05 08:13 | NUR ---
PT PROMPTED FOR URINE SAMPLE. PROVIDED WITH URINE CUP AND CALL LIGHT WITHIN REACH. WILL CONTINUE TO MONITOR.
[2020-04-05 08:21] LABS: BASO # 0.1 10*3/uL (0.0-0.1); BASO % 0.4 % (0.0-1.0); EOS % 0.1 % (1.0-4.0); HEMATOCRIT 47.2 % (37.0-47.0); LYMPH # 2.7 10*3/uL (1.3-4.4); LYMPH % 19.9 % (27.0-41.0); MEAN CELL VOLUME 87.4 fl (81.0-99.0); MEAN CORPUSCULAR HGB 28.3 pg (27.0-31.0); MEAN CORPUSCULAR HGB CONC 32.4 g/dl (33.0-37.0); MEAN PLATELET VOLUME 9.9 fl (9.6-12.3); MONO # 0.5 10*3/uL (0.1-1.0); MONO % 3.9 % (3.0-9.0); NEUT # 10.1 10*3/uL (2.3-7.9); NEUT % 75.4 % (47.0-73.0); PLATELET COUNT AUTOMATED 538 10*3/uL (130-400); RED CELL DISTRI WIDTH 13.8 % (0-14.5); WHITE BLOOD COUNT 13.5 10*3/uL (4.8-10.8)
[2020-04-05 08:37] LABS: ALBUMIN 3.2 gm/dl (3.1-4.5); ALKALINE PHOSPHATASE 114 U/L (45-117); BUN 10 mg/dl (7-24); CHLORIDE 106 mmol/L (98-107); CREATININE 0.66 mg/dL (0.55-1.02); POTASSIUM 3.4 mmol/L (3.5-5.1); SGOT/AST 16 IU/L (3-35); SGPT/ALT 20 U/L (12-78); SODIUM 136 mmol/L (136-145); TOTAL PROTEIN 8.4 gm/dL (6.4-8.2)
--- NOTE | 2020-04-05 08:44 | NUR ---
PT REPORTS PAIN 8/10 AFTER DEMEROL.
--- NOTE | 2020-04-05 09:55 | NUR ---
PT HAS BEEN PROMPTED TO DRINK IV CONTRAST. PT REPORTS SHE IS UNABLE TO DRINK AT THIS TIME. PT AGAIN PROMPTED FOR URINE.
--- NOTE | 2020-04-05 10:21 | NUR ---
PT IN CT AT THIS TIME.
[2020-04-05 11:36] LABS: BILIRUBIN NEGATIVE; BLOOD NEGATIVE (NEGATIVE); CLARITY CLEAR (CLEAR); COLOR YELLOW (YELLOW); GLUCOSE NEGATIVE; KETONE 1+; SPECIFIC GRAVITY > 1.030 (1.001-1.030)
[2020-04-05 11:37] LABS: LEUKO ESTERASE NEGATIVE (NEGATIVE); NITRITE NEGATIVE (NEGATIVE); UROBILINOGEN 0.2 E.U./dl (0.0-1.0)
[2020-04-05 11:47] LABS: BACTERIA TRACE
--- NOTE | 2020-04-05 12:00 | NUR ---
PT DENIES WOUNDS. PT ALSO REFUSED TO WEAR GOWN. PT IN GOWN FROM HOME AND PREFERS TO WEAR OWN GOWN.
[2020-04-05 13:37] VITALS: BP 142/86
--- NOTE | 2020-04-05 13:45 | NUR ---
Time: 1344 A 49 year old FEMALE admitted to under services of JOSE MARTIN LOWE DO. Pt. arrived via bed from ER. Chief complaint: ABDOMINAL PAIN. RICH BLACKMAN
--- NOTE | 2020-04-05 14:20 | NUR ---
PT MEDICATED WITH ONE TIME DOSE OF FENTANYL FOR C/O 10 ABDOMINAL PAIN. WILL MONITOR.
--- NOTE | 2020-04-05 14:40 | NUR ---
ONE TIME FENTANYL DOSE EFFECTIVE PER PT.
[2020-04-05] MEDS ORDERED: MIRALAX POWDER17 G1 PO (15:12)
--- NOTE | 2020-04-05 15:43 | NUR ---
PT MEDICATED WITH PRN ZOFRAN FOR C.O NAUSEA. WILL MONITOR.
[2020-04-05 16:00] VITALS: BP 132/92
--- NOTE | 2020-04-05 16:15 | NUR ---
PRN ZOFRAN EFFCETIVE PER PT/.
--- NOTE | 2020-04-05 16:22 | NUR ---
PT MEDICATED WITH PRN DILAUDID FOR C/O ABDOMINAL PAIN. PT RATES PAIN 02/21. WILL MONITOR.
--- NOTE | 2020-04-05 17:00 | NUR ---
PRN DILAUDID EFFECTIVE PER PT. SHE STATES HER PAIN IS MANAGABLE AT THIS POINT. WILL CONTINUE TO MONITOR.
--- NOTE | 2020-04-05 20:00 | NUR ---
Neurological: awake,alert,oriented Respiratory: diminished bilaterally Breath sounds: clear Cough: none Cardiovascular: no problem Gastrointestinal: soft Genito/Urinary: no problem Musculoskeketal: AMBULATORY CAPO ANDREW
--- NOTE | 2020-04-05 20:22 | NUR ---
PT THRASHING ABOUT IN BED CRYING. PT STATES SHE HAS INTENSE DIFFUSE ABD PAIN W/ASSOCIATED NAUSEA. PT MEDICATED W/IVP DILAUDID PER PT REQUEST. PT REFUSING PO PERCOCET AT ALL. PT TEACHING GIVEN ON ALTERNATING DILAUDID/PERCOCET TO BETTER CONTROL PAIN. PT STATES PERCOCET MAKES HER ITCH EARLENE IT HAS MORPHINE IN IT. PT TEACHING GIVEN RE PERCOCET/DILAUDID COMPOSITION AND S/E. PT CONTINUES TO ARGUE WITH THIS NURSE AND STATES SHE WILL JUST LEAVE. PT ADVISED SHE IS ABLE TO LEAVE AT ANY TIME. PT STOPPED ARGUEING WITH THIS NURSE. IV ATB'S GIVEN AT THIS TIME. CALL LIGHT IN REACH.
--- NOTE | 2020-04-05 20:31 | NUR ---
PT MEDICATED W/IVP ZOFRAN FOR C/O SEVERE NAUSEA. PT DENIES DIARRHEA. WILL MONITOR FOR EFFECTIVENESS. CALL LIGHT IN REACH.
--- NOTE | 2020-04-05 21:20 | NUR ---
PT STATES THAT ZOFRAN AND DILAUDID MUST HAVE BEEN EFFECTIVE D/T SHE IS NOW HUNGRY. PT TEACHING GIVEN ON CLEAR LIQUID DIET. COUPLE GRAPE JUICES GIVEN TO PT AT THIS TIME. CALL LIGHT IN REACH.
[2020-04-06] VITALS: BP 131/77
--- NOTE | 2020-04-06 03:03 | NUR ---
PT MEDICATED W/ZOFRAN IVP FOR C/O N/V. SMALL AMOUNT OF LIQUID GREEN EMESIS W/FOOD PARTICLES NOTED IN TRASH CAN. EMESIS BASIN GIVEN TO PT. PT REMINDED OF NEED FOR STOOL SAMPLE. PT STATES SHE IS AWARE. WILL MONITOR FOR EFFECTIVENESS OF ZOFRAN.
[2020-04-06 04:00] VITALS: BP 138/84
[2020-04-06 06:55] LABS: BASO # 0.1 10*3/uL (0.0-0.1); BASO % 0.5 % (0.0-1.0); EOS % 0.3 % (1.0-4.0); HEMATOCRIT 45.8 % (37.0-47.0); LYMPH # 2.7 10*3/uL (1.3-4.4); LYMPH % 21.3 % (27.0-41.0); MEAN CELL VOLUME 88.4 fl (81.0-99.0); MEAN CORPUSCULAR HGB 27.8 pg (27.0-31.0); MEAN CORPUSCULAR HGB CONC 31.4 g/dl (33.0-37.0); MEAN PLATELET VOLUME 10.2 fl (9.6-12.3); MONO # 0.7 10*3/uL (0.1-1.0); MONO % 5.8 % (3.0-9.0); NEUT # 8.9 10*3/uL (2.3-7.9); NEUT % 71.6 % (47.0-73.0); PLATELET COUNT AUTOMATED 579 10*3/uL (130-400); RED BLOOD COUNT 5.18 10*6/uL (4.10-5.10); RED CELL DISTRI WIDTH 13.7 % (0-14.5); WHITE BLOOD COUNT 12.5 10*3/uL (4.8-10.8)
[2020-04-06 07:03] LABS: BUN 8 mg/dl (7-24); CHLORIDE 105 mmol/L (98-107); CREATININE 0.69 mg/dL (0.55-1.02); SODIUM 136 mmol/L (136-145)
--- NOTE | 2020-04-06 07:40 | NUR ---
24 HR chart check completed.
[2020-04-06 08:00] VITALS: BP 111/75
--- NOTE | 2020-04-06 08:44 | NUR ---
MEDICATED WITH IV ZOFRAN ORDERED PER PT REQUEST FOR C/O NAUSEA.
--- NOTE | 2020-04-06 09:00 | NUR ---
Senior Software Project Manager in to talk to patient. Patient states lives at home with her and daughter. There are 3 steps in the home. Physician: [facility] Pharmacy: [facility] Home health services: none Patient's level of ADLs: INDEPENDENT Patient has working utilities: yes DME: none Follow-up physician's appointment after d/c: will be made by the hospitalist nurse director upon discharge Does patient want to access PORTAL?: no Discharge plan discussed with patient. She is sitting on the edge of her bed. She lives at home with her family. She states she is independent in ADLs and ambulation. Discussed home health care services and she declines. CM will continue to follow for nay discharge planning needs. When medically stable she will be discharged to home. She states her will provide transportation on discharge. USHA GÓMEZ
--- NOTE | 2020-04-06 09:30 | NUR ---
MEDICATION EFFECTIVE FOR NAUSEA.
--- NOTE | 2020-04-06 10:03 | NUR ---
MEDICATED WITH IV DILAUDID ORDERED PER PT REQUEST FOR C/O PAIN TO ENTIRE ABDOMNEN RATED 9/10.
--- NOTE | 2020-04-06 10:50 | NUR ---
MEDICATION SOME WHAT EFFECTIVE FOR PAIN.
[2020-04-06 12:00] VITALS: BP 116/75
--- NOTE | 2020-04-06 14:26 | NUR ---
MEDICATED WITH IV DILAUDID ORDERED PER PT REQUEST FOR C/O PAIN TO ABDOMEN RATED 8/10.
--- NOTE | 2020-04-06 15:15 | NUR ---
MEDICATION SOMEWHAT EFFECTIVE FOR PAIN.
[2020-04-06 16:00] VITALS: BP 106/66
--- NOTE | 2020-04-06 17:41 | NUR ---
MEDICATED WITH IV ZOFRAN ORDERED PER PT REQUEST FOR C/O NAUSEA.
--- NOTE | 2020-04-06 18:06 | NUR ---
DR PAYTON NOTIFIED OF CONTINUED N/V DESPITE TX WITH ZOFRAN X2, INABILITY TO KEEP PO FLUID DOWN AND HYPOTENSION. NEW ORDERS FORTHCOMING.
--- NOTE | 2020-04-06 18:10 | NUR ---
MEDICATION INEFFECTIVE FOR NAUSEA.
--- NOTE | 2020-04-06 18:15 | NUR ---
MEDICATED WITH IV PHENERGAN ORDERED PER PT REQUEST FOR N/V.
--- NOTE | 2020-04-06 18:55 | NUR ---
MEDICATION EFFECTIVE FOR NAUSEA.
[2020-04-06 20:00] VITALS: BP 115/72
--- NOTE | 2020-04-06 20:00 | NUR ---
PT SEEN AND ASSESSED. PT STATES SHE HAS BEEN HAVING DIFFICULTY WITH NAUSEA ALL DAY AND CURRENTLY IS COMFORTABLE IF SHE IS NOT MOVING. PT RESTING QUIETLY IN BED. PT DENIES NEED FOR ANYTHING AT THIS TIME. DISCUSSED NAUSEA MANAGEMENT WITH PT.
--- NOTE | 2020-04-06 20:33 | NUR ---
PT REQUESTING PRN PAIN MEDICATION FOR ABDOMINAL PAIN 01/21. PRN PAIN MEDICATION ADMINISTERED. WILL REASSESS.
--- NOTE | 2020-04-06 21:29 | NUR ---
PT REPORTS PAIN IS BETTER CONTROLLED AT 5/10. NO SIDE EFFECTS NOTED NOTED. WILL REASSESS.
[2020-04-07] VITALS: BP 99/57
--- NOTE | 2020-04-07 00:09 | NUR ---
24 HR chart check completed.
--- NOTE | 2020-04-07 01:03 | NUR ---
24 HR chart check completed.
--- NOTE | 2020-04-07 01:27 | NUR ---
PT REQUEST PRN NAUSEA MEDICATION. PT MEDICATED WITH PROMETHAZINE FOR NAUSEA PT STATES ZOFRAN OS INEFFECTIVE FOR CONTROL OF NAUSEA. WILL REASSESS.
--- NOTE | 2020-04-07 02:27 | NUR ---
PT RESTING QUIETLY WITH EYES CLOSED.PT APPEARS TO BE SLEEPING.
--- NOTE | 2020-04-07 06:41 | NUR ---
PT REQUESTING PRN NAUSEA MEDICATION. WILL REASSESS.
[2020-04-07 06:52] LABS: BASO # 0.1 10*3/uL (0.0-0.1); BASO % 0.4 % (0.0-1.0); EOS % 0.1 % (1.0-4.0); HEMATOCRIT 45.7 % (37.0-47.0); LYMPH # 2.9 10*3/uL (1.3-4.4); LYMPH % 20.7 % (27.0-41.0); MEAN CELL VOLUME 89.8 fl (81.0-99.0); MEAN CORPUSCULAR HGB 28.3 pg (27.0-31.0); MEAN CORPUSCULAR HGB CONC 31.5 g/dl (33.0-37.0); MEAN PLATELET VOLUME 10.1 fl (9.6-12.3); MONO # 0.8 10*3/uL (0.1-1.0); MONO % 5.5 % (3.0-9.0); NEUT % 72.9 % (47.0-73.0); PLATELET COUNT AUTOMATED 534 10*3/uL (130-400); RED BLOOD COUNT 5.09 10*6/uL (4.10-5.10); RED CELL DISTRI WIDTH 13.9 % (0-14.5); WHITE BLOOD COUNT 13.8 10*3/uL (4.8-10.8)
[2020-04-07 07:20] LABS: BUN 9 mg/dl (7-24); CHLORIDE 104 mmol/L (98-107); CREATININE 0.65 mg/dL (0.55-1.02); POTASSIUM 4.1 mmol/L (3.5-5.1); SODIUM 135 mmol/L (136-145)
--- NOTE | 2020-04-07 07:32 | NUR ---
PATIENT'S NAUSEA HAS DECREASED AT THIS TIME, PER PT IT IS TOLERABLE AT THE MOMENT.
[2020-04-07 08:00] VITALS: BP 112/70; BP 135/82
--- NOTE | 2020-04-07 09:00 | NUR ---
CM in to see patient. No new needs or request at this time. Discussed home health care services and she declines. CM will continue to follow for any discharge planning needs. When medically stable she will be discharged to home.
--- NOTE | 2020-04-07 11:16 | NUR ---
PATIENT MEDICATED WITH IV DILAUDID AT THIS TIME FOR COMPLAINTS OF 8/10 ABD PAIN. WILL MONITOR FOR EFFECTIVENESS. REFUSING CARAFATE AT THIS TIME DUE TO UPSET STOMACH.
[2020-04-07 12:00] VITALS: BP 123/89
--- NOTE | 2020-04-07 14:00 | NUR ---
NOTIFIED RESIDENT OF +C.DIFF
--- NOTE | 2020-04-07 15:06 | NUR ---
Nutritiaonl Support Services Note: Pt receives a clear liquid diet since admission on 04/05. Diet needs advanced to full liquid. Will monitor. Ht.5'9 Wt.249#. IBW 135-155. Advance diet as tolerated. Randee Baltazar Rdn LD
--- NOTE | 2020-04-07 15:19 | NUR ---
PT MEDICATED WITH PHENERGAN FOR C/O NAUSEA. WILL MONITOR FOR EFFECTIVENESS.
[2020-04-07 16:00] VITALS: BP 131/90
--- NOTE | 2020-04-07 16:19 | NUR ---
PER PATIENT, PHENERGAN HAS BEEN EFFECTIVE FOR NAUSEA.
--- NOTE | 2020-04-07 16:31 | NUR ---
PATIENT MEDICATED UPON REQUEST WITH DILAUDID FOR C/O PAIN IN ABD 03/24. WILL MONITOR FOR EFFECTIEVNESS.
[2020-04-07 20:00] VITALS: BP 117/71
--- NOTE | 2020-04-07 21:26 | NUR ---
PT SEEN AND ASSESSED. PT W/ C/O PAIN TO DIFFUSE ABDOMEN 8/10 AND NAUSEA. PT REQUEST FOR PRN PAIN MEDICATION AND NAUSEA MEDICATION. PT STATES SHE WAS ABLE TO KEEP DOWN A POPSICLE AND SOME JELLO TODAY. PT SEEMS TO BE IN BETTER SPIRITS OVERALL COMPARED TO YESTERDAY.
--- NOTE | 2020-04-07 22:23 | NUR ---
PT REPORTS PAIN MEDCIATION AND NAUSEA MEDICATION TO BE EFFECTIVE AT THIS TIME.
[2020-04-08] VITALS: BP 100/58
--- NOTE | 2020-04-08 02:32 | NUR ---
24 HR chart check completed.
--- NOTE | 2020-04-08 05:45 | NUR ---
OL DIV TO LAC WAS REMOVED DUE TO PT C/O PAIN AND LEAKING AROUND THE SITE. AREA COVERED WITH 2X2 AND TAPE. NEW IV PLACED TO RFA.
[2020-04-08 07:02] LABS: BASO % 0.3 % (0.0-1.0); EOS # 0.1 10*3/uL (0.0-0.4); HEMATOCRIT 42.6 % (37.0-47.0); LYMPH # 3.8 10*3/uL (1.3-4.4); LYMPH % 31.7 % (27.0-41.0); MEAN CELL VOLUME 89.1 fl (81.0-99.0); MEAN CORPUSCULAR HGB 28.7 pg (27.0-31.0); MEAN CORPUSCULAR HGB CONC 32.2 g/dl (33.0-37.0); MONO # 0.9 10*3/uL (0.1-1.0); MONO % 7.4 % (3.0-9.0); NEUT # 7.1 10*3/uL (2.3-7.9); NEUT % 59.2 % (47.0-73.0); PLATELET COUNT AUTOMATED 475 10*3/uL (130-400); RED BLOOD COUNT 4.78 10*6/uL (4.10-5.10); RED CELL DISTRI WIDTH 13.9 % (0-14.5)
[2020-04-08 07:45] LABS: ALBUMIN 2.7 gm/dl (3.1-4.5); ALKALINE PHOSPHATASE 89 U/L (45-117); BUN 8 mg/dl (7-24); CHLORIDE 105 mmol/L (98-107); CREATININE 0.53 mg/dL (0.55-1.02); POTASSIUM 3.7 mmol/L (3.5-5.1); SGOT/AST 19 IU/L (3-35); SGPT/ALT 20 U/L (12-78); SODIUM 136 mmol/L (136-145); TOTAL PROTEIN 6.8 gm/dL (6.4-8.2)
[2020-04-08 08:00] VITALS: BP 128/90
--- NOTE | 2020-04-08 11:28 | NUR ---
Nutritional Support Services Note: Diet advanced to regular. Monitor for tolerance of diet. Encourage intake. Will follow as needed. Randee Baltazar Rdn Ld
[2020-04-08 12:00] VITALS: BP 114/66
[2020-04-08] MEDS ORDERED: ZOFRAN4 MG PO (13:20)
[2020-04-08] MEDS ORDERED: VANCOMYCIN HCL125 MG PO (13:20)
--- NOTE | 2020-04-08 14:50 | NUR ---
Discharge instructions reviewed with patient/family. Patient receptive and verbalizes understanding. Follow-up care arranged. Written instructions given to patient/family. HEPLOCK DISCONTINUED. PATIENT INSTRUCTED ON C.DIFF INCLUSING CLEANING INSTRUCTIONS AND ISOLATION. TAKEN OFF FLOOR VIA WHEELCHAIR. DIANNA ACOSTA
== END 2020-04-08 14:50 | disposition home or self-care (01) | DRG 248 ==
LOC: ED 07:42 → 4E 12:28 → EDHOLD 12:28 → 4E 13:18
PROVIDERS: Emergency Medicine; Internal Medicine; Podiatrist; ADMIT Student in an Organized Health Care Education/Training Program; ATTEND Student in an Organized Health Care Education/Training Program
DX: A04.72 Enterocolitis due to Clostridium difficile, not specified as recurrent (principal); D72.829 Elevated white blood cell count, unspecified; D75.1 Secondary polycythemia; E87.6 Hypokalemia; J44.9 Chronic obstructive pulmonary disease, unspecified; E44.0 Moderate protein-calorie malnutrition; N39.0 Urinary tract infection, site not specified; B96.20 Unspecified Escherichia coli [E. coli] as the cause of diseases classified elsewhere; F17.210 Nicotine dependence, cigarettes, uncomplicated; I10 Essential (primary) hypertension; E11.65 Type 2 diabetes mellitus with hyperglycemia; Z68.37 Body mass index [BMI] 37.0-37.9, adult; Z71.6 Tobacco abuse counseling; Z90.49 Acquired absence of other specified parts of digestive tract; Z83.3 Family history of diabetes mellitus; Z80.1 Family history of malignant neoplasm of trachea, bronchus and lung; Z82.49 Family history of ischemic heart disease and other diseases of the circulatory system; Z88.0 Allergy status to penicillin; Z88.1 Allergy status to other antibiotic agents; Z91.040 Latex allergy status; Z79.899 Other long term (current) drug therapy; K52.9 Noninfective gastroenteritis and colitis, unspecified

== ENCOUNTER → 2020-11-21 | Outpatient (CLI) | payer OTHER ==
[~2020-11-21] MED LIST changes: +MIRALAX POWDER17 G1 PO; +VANCOMYCIN HCL125 MG PO
== END | disposition home or self-care (01) ==
LOC: US 11:30
PROVIDERS: ATTEND Nurse Practitioner Women's Health
DX: N95.0 Postmenopausal bleeding (principal)

== ENCOUNTER → 2021-02-22 | Outpatient (CLI) | payer OTHER | END | disposition home or self-care (01) | LOC: RESCLI 00:41 | PROVIDERS: ATTEND Internal Medicine Nephrology | DX: K57.92 Diverticulitis of intestine, part unspecified, without perforation or abscess without bleeding (principal); E55.9 Vitamin D deficiency, unspecified; I10 Essential (primary) hypertension; G62.9 Polyneuropathy, unspecified; E11.65 Type 2 diabetes mellitus with hyperglycemia; J44.9 Chronic obstructive pulmonary disease, unspecified; E66.01 Morbid (severe) obesity due to excess calories; N95.0 Postmenopausal bleeding; N39.41 Urge incontinence; Z93.3 Colostomy status; Z88.0 Allergy status to penicillin; Z88.8 Allergy status to other drugs, medicaments and biological substances; Z90.49 Acquired absence of other specified parts of digestive tract; Z79.899 Other long term (current) drug therapy ==

== ENCOUNTER 2021-03-23 21:47 | Emergency (ER) | payer OTHER ==
[~2021-03-23] VITALS: Ht 175.2 cm; Wt 124.3 kg
[2021-03-23 22:03] VITALS: BP 147/84
[2021-03-23] MEDS ORDERED: LANTUS SOL100 UNIT/1 SC (22:04)
== END 2021-03-24 | disposition home or self-care (01) ==
LOC: ED 21:47
DX: R05 Cough (principal); Z20.822 Contact with and (suspected) exposure to COVID-19; F17.200 Nicotine dependence, unspecified, uncomplicated; Z88.0 Allergy status to penicillin; Z88.1 Allergy status to other antibiotic agents; Z91.040 Latex allergy status; Z79.899 Other long term (current) drug therapy

== ENCOUNTER 2021-05-18 13:29 | Emergency (ER) | payer OTHER ==
[~2021-05-18] VITALS: Wt 124.7 kg
[2021-05-18 13:40] VITALS: BP 157/85
[2021-05-18 14:59] LABS: HEMATOCRIT 45.9 % (37.0-47.0); MEAN CELL VOLUME 88.3 fl (81.0-99.0); MEAN PLATELET VOLUME 10.9 fl (9.6-12.3); PLATELET COUNT AUTOMATED 345 10*3/uL (130-400); RED CELL DISTRI WIDTH 12.9 % (0-14.5); WHITE BLOOD COUNT 12.6 10*3/uL (4.8-10.8)
[2021-05-18 15:14] LABS: ALBUMIN 2.8 gm/dl (3.1-4.5); ALKALINE PHOSPHATASE 217 U/L (45-117); BUN 9 mg/dl (7-24); CHLORIDE 102 mmol/L (98-107); CREATININE 0.79 mg/dL (0.55-1.02); POTASSIUM 4.1 mmol/L (3.5-5.1); SGOT/AST 37 IU/L (3-35); SGPT/ALT 45 U/L (12-78); SODIUM 134 mmol/L (136-145); TOTAL PROTEIN 7.7 gm/dL (6.4-8.2)
[2021-05-18 15:57] LABS: ATYPICAL LYMPHS 8 % (0-0); PLATELET SUFFICIENCY NORMAL (NORMAL); TOTAL CELLS COUNTED 100 #CELLS
== END 2021-05-18 17:00 | disposition home or self-care (01) ==
LOC: ED 13:29
PROVIDERS: Internal Medicine
DX: E11.65 Type 2 diabetes mellitus with hyperglycemia (principal); F17.200 Nicotine dependence, unspecified, uncomplicated; Z88.0 Allergy status to penicillin; Z88.1 Allergy status to other antibiotic agents; Z91.040 Latex allergy status; Z79.899 Other long term (current) drug therapy

== ENCOUNTER → 2021-05-23 | Outpatient (CLI) | payer OTHER | END | disposition home or self-care (01) | LOC: RESCLI 07:05 | PROVIDERS: ATTEND Internal Medicine | DX: E11.65 Type 2 diabetes mellitus with hyperglycemia (principal); I10 Essential (primary) hypertension; G62.9 Polyneuropathy, unspecified; N39.41 Urge incontinence; J44.9 Chronic obstructive pulmonary disease, unspecified; Z93.3 Colostomy status; Z79.899 Other long term (current) drug therapy; Z90.49 Acquired absence of other specified parts of digestive tract; Z98.890 Other specified postprocedural states; Z88.0 Allergy status to penicillin; Z88.1 Allergy status to other antibiotic agents; Z88.5 Allergy status to narcotic agent; Z88.8 Allergy status to other drugs, medicaments and biological substances ==

== ENCOUNTER → 2021-06-06 | Outpatient (CLI) | payer OTHER | END | disposition home or self-care (01) | LOC: COVID19 17:31 | PROVIDERS: ATTEND Student in an Organized Health Care Education/Training Program | DX: Z11.52 Encounter for screening for COVID-19 (principal) ==

== ENCOUNTER 2021-06-25 23:37 | Observation (INO) | payer OTHER ==
[~2021-06-25] VITALS: Ht 178 cm; Wt 122.0 kg
[2021-06-25 23:45] VITALS: BP 163/105
[2021-06-26 00:10] LABS: BASO % 0.3 % (0.0-1.0); EOS # 0.1 10*3/uL (0.0-0.4); EOS % 0.7 % (1.0-4.0); HEMATOCRIT 43.3 % (37.0-47.0); LYMPH # 2.5 10*3/uL (1.3-4.4); LYMPH % 25.7 % (27.0-41.0); MEAN CELL VOLUME 87.3 fl (81.0-99.0); MEAN CORPUSCULAR HGB CONC 33.3 g/dl (33.0-37.0); MEAN PLATELET VOLUME 11.1 fl (9.6-12.3); MONO # 0.6 10*3/uL (0.1-1.0); MONO % 6.6 % (3.0-9.0); NEUT # 6.4 10*3/uL (2.3-7.9); NEUT % 66.3 % (47.0-73.0); PLATELET COUNT AUTOMATED 321 10*3/uL (130-400); RED BLOOD COUNT 4.96 10*6/uL (4.10-5.10); RED CELL DISTRI WIDTH 12.5 % (0-14.5); WHITE BLOOD COUNT 9.6 10*3/uL (4.8-10.8)
[2021-06-26 00:23] LABS: ALBUMIN 2.3 gm/dl (3.1-4.5); ALKALINE PHOSPHATASE 176 U/L (45-117); BUN 8 mg/dl (7-24); CHLORIDE 100 mmol/L (98-107); CREATININE 0.67 mg/dL (0.55-1.02); POTASSIUM 3.9 mmol/L (3.5-5.1); SGOT/AST 32 IU/L (3-35); SGPT/ALT 29 U/L (12-78); SODIUM 133 mmol/L (136-145); TOTAL PROTEIN 7.4 gm/dL (6.4-8.2)
[2021-06-26 01:14] VITALS: BP 135/94
[2021-06-26 02:30] VITALS: BP 117/61
[2021-06-26 06:16] LABS: BUN 8 mg/dl (7-24); CHLORIDE 104 mmol/L (98-107); CPK 34 U/L (26-192); CREATININE 0.61 mg/dL (0.55-1.02); LDH 268 U/L (84-246); POTASSIUM 4.1 mmol/L (3.5-5.1); SODIUM 137 mmol/L (136-145)
[2021-06-26 08:00] VITALS: BP 127/90
[2021-06-26] MEDS ORDERED: DECADRON6 M1 PO (11:57)
[2021-06-26 12:00] VITALS: BP 128/79
[2021-06-26] MEDS ORDERED: ZITHROMAX250 MG PO (12:55)
== END 2021-06-26 14:29 | disposition home or self-care (01) ==
LOC: ED 23:37 → 4E 06-26 01:07 → EDHOLD 06-26 01:07 → 4E 06-26 01:18
PROVIDERS: Internal Medicine; ADMIT Student in an Organized Health Care Education/Training Program; ATTEND Student in an Organized Health Care Education/Training Program
DX: U07.1 COVID-19 (principal); J12.82 Pneumonia due to coronavirus disease 2019; A41.9 Sepsis, unspecified organism; E87.1 Hypo-osmolality and hyponatremia; J18.9 Pneumonia, unspecified organism; R79.82 Elevated C-reactive protein (CRP); E88.09 Other disorders of plasma-protein metabolism, not elsewhere classified; A04.72 Enterocolitis due to Clostridium difficile, not specified as recurrent; F17.210 Nicotine dependence, cigarettes, uncomplicated; R06.82 Tachypnea, not elsewhere classified; E66.01 Morbid (severe) obesity due to excess calories; I10 Essential (primary) hypertension; J44.9 Chronic obstructive pulmonary disease, unspecified; E11.65 Type 2 diabetes mellitus with hyperglycemia; E43 Unspecified severe protein-calorie malnutrition; E55.9 Vitamin D deficiency, unspecified; Z71.6 Tobacco abuse counseling; Z79.899 Other long term (current) drug therapy

== ENCOUNTER 2021-10-09 00:19 | Emergency (ER) | payer OTHER ==
[~2021-10-09] VITALS: Ht 175.2 cm; Wt 123.8 kg
[~2021-10-09 00:19] MED LIST changes: +DECADRON6 M1 PO
[2021-10-09 01:11] LABS: HEMATOCRIT 45.4 % (37.0-47.0); MEAN CELL VOLUME 88.5 fl (81.0-99.0); MEAN CORPUSCULAR HGB 29.4 pg (27.0-31.0); MEAN CORPUSCULAR HGB CONC 33.3 g/dl (33.0-37.0); MEAN PLATELET VOLUME 10.6 fl (9.6-12.3); PLATELET COUNT AUTOMATED 294 10*3/uL (130-400); RED BLOOD COUNT 5.13 10*6/uL (4.10-5.10); RED CELL DISTRI WIDTH 12.9 % (0-14.5); WHITE BLOOD COUNT 11.6 10*3/uL (4.8-10.8)
[2021-10-09 01:12] LABS: MANUAL DIFF REFLEX YES
[2021-10-09 01:31] LABS: ALKALINE PHOSPHATASE 233 U/L (45-117); BUN 10 mg/dl (7-24); CHLORIDE 100 mmol/L (98-107); CKMB < 1.0 ng/ml (0.5-3.6); CPK 48 U/L (26-192); CREATININE 0.78 mg/dL (0.55-1.02); LIPASE 147 U/L (73-393); POTASSIUM 3.7 mmol/L (3.5-5.1); SGOT/AST 43 IU/L (3-35); SGPT/ALT 37 U/L (12-78); SODIUM 131 mmol/L (136-145); TOTAL PROTEIN 7.1 gm/dL (6.4-8.2)
[2021-10-09 01:32] LABS: ATYPICAL LYMPHS 2 % (0-0); PLATELET SUFFICIENCY NORMAL (NORMAL); TOTAL CELLS COUNTED 100 #CELLS
[2021-10-09 02:27] LABS: BILIRUBIN Negative (Negative); BLOOD Trace-Lysed (Negative); CLARITY Cloudy (Clear); COLOR Yellow (Yellow); GLUCOSE 3+ (Negative); KETONE 1+ (Negative); LEUKO ESTERASE 1+ (Negative); NITRITE Positive (Negative); SPECIFIC GRAVITY >= 1.030 (1.001-1.030)
[2021-10-09 02:37] LABS: BACTERIA 1+; EPITHELIAL CELLS TNTC; WBC 21-30 wbc/hpf (0-5)
[2021-10-09 19:26] VITALS: BP 105/69
== END 2021-10-09 21:55 | disposition admitted as inpatient to this hospital (09) ==
LOC: ED 00:19
PROVIDERS: Emergency Medicine
DX: A41.9 Sepsis, unspecified organism (principal); Z20.822 Contact with and (suspected) exposure to COVID-19; N39.0 Urinary tract infection, site not specified; F17.200 Nicotine dependence, unspecified, uncomplicated; Z88.0 Allergy status to penicillin; Z88.1 Allergy status to other antibiotic agents; Z91.040 Latex allergy status; Z79.899 Other long term (current) drug therapy; Z90.49 Acquired absence of other specified parts of digestive tract; Z98.890 Other specified postprocedural states; Z98.51 Tubal ligation status

== ENCOUNTER → 2021-11-08 | Outpatient (CLI) | payer OTHER | END | disposition home or self-care (01) | LOC: RESCLI 08:07 | PROVIDERS: ATTEND Student in an Organized Health Care Education/Training Program | DX: Z01.818 Encounter for other preprocedural examination (principal); K21.9 Gastro-esophageal reflux disease without esophagitis; I10 Essential (primary) hypertension; E55.9 Vitamin D deficiency, unspecified; G62.9 Polyneuropathy, unspecified; J44.9 Chronic obstructive pulmonary disease, unspecified; E11.69 Type 2 diabetes mellitus with other specified complication; Z79.4 Long term (current) use of insulin; Z93.3 Colostomy status; Z79.899 Other long term (current) drug therapy; Z88.8 Allergy status to other drugs, medicaments and biological substances; Z88.0 Allergy status to penicillin; Z90.49 Acquired absence of other specified parts of digestive tract ==

== ENCOUNTER → 2021-11-14 | Outpatient (CLI) | payer OTHER ==
[2021-11-14 08:58] LABS: HEMATOCRIT 48.1 % (37.0-47.0); MEAN CELL VOLUME 90.2 fl (81.0-99.0); MEAN CORPUSCULAR HGB 29.5 pg (27.0-31.0); MEAN CORPUSCULAR HGB CONC 32.6 g/dl (33.0-37.0); MEAN PLATELET VOLUME 9.9 fl (9.6-12.3); PLATELET COUNT AUTOMATED 410 10*3/uL (130-400); RED BLOOD COUNT 5.33 10*6/uL (4.10-5.10); RED CELL DISTRI WIDTH 13.2 % (0-14.5); WHITE BLOOD COUNT 12.4 10*3/uL (4.8-10.8)
[2021-11-14 09:06] LABS: MANUAL DIFF REFLEX YES
[2021-11-14 09:17] LABS: ALKALINE PHOSPHATASE 156 U/L (45-117); BUN 9 mg/dl (7-24); CHLORIDE 105 mmol/L (98-107); POTASSIUM 4.5 mmol/L (3.5-5.1); SGOT/AST 23 IU/L (3-35); SODIUM 139 mmol/L (136-145)
[2021-11-14 09:21] LABS: CREATININE 0.65 mg/dL (0.55-1.02); SGPT/ALT 27 U/L (12-78); TOTAL PROTEIN 7.9 gm/dL (6.4-8.2)
[2021-11-14 09:54] LABS: ATYPICAL LYMPHS 1 % (0-0); TOTAL CELLS COUNTED 100 #CELLS
[2021-11-14 09:55] LABS: PLATELET SUFFICIENCY HIGH (NORMAL)
== END | disposition home or self-care (01) ==
LOC: LAB 08:28
PROVIDERS: ATTEND Physician Assistant
DX: K57.32 Diverticulitis of large intestine without perforation or abscess without bleeding (principal); N32.1 Vesicointestinal fistula

== ENCOUNTER → 2021-11-30 | Outpatient (CLI) | payer OTHER | END | disposition home or self-care (01) | LOC: LAB 09:12 | PROVIDERS: ATTEND Physician Assistant | DX: Z72.0 Tobacco use (principal) ==

== ENCOUNTER → 2021-12-26 | Outpatient (CLI) | payer OTHER ==
[2021-12-26 12:16] LABS: MEAN CELL VOLUME 91.3 fl (81.0-99.0); MEAN CORPUSCULAR HGB CONC 32.9 g/dl (33.0-37.0); MEAN PLATELET VOLUME 10.5 fl (9.6-12.3); PLATELET COUNT AUTOMATED 403 10*3/uL (130-400); RED BLOOD COUNT 4.93 10*6/uL (4.10-5.10); RED CELL DISTRI WIDTH 13.7 % (0-14.5); WHITE BLOOD COUNT 13.5 10*3/uL (4.8-10.8)
[2021-12-26 12:19] LABS: MANUAL DIFF REFLEX YES
[2021-12-26 12:46] LABS: ATYPICAL LYMPHS 2 % (0-0); PLATELET SUFFICIENCY HIGH (NORMAL); POLYCHROMASIA SLIGHT; TOTAL CELLS COUNTED 100 #CELLS
[2021-12-26 12:56] LABS: ALKALINE PHOSPHATASE 145 U/L (45-117); BUN 10 mg/dl (7-24); CHLORIDE 106 mmol/L (98-107); CREATININE 0.72 mg/dL (0.55-1.02); POTASSIUM 4.3 mmol/L (3.5-5.1); SGOT/AST 23 IU/L (3-35); SGPT/ALT 26 U/L (12-78); SODIUM 138 mmol/L (136-145); TOTAL PROTEIN 7.4 gm/dL (6.4-8.2)
[2022-01-03 17:06] LABS: COTININE 256.3 ng/mL (.); NICOTINE 22.4 ng/mL (.)
== END | disposition home or self-care (01) ==
LOC: LAB 11:39
PROVIDERS: ATTEND Physician Assistant
DX: K57.32 Diverticulitis of large intestine without perforation or abscess without bleeding (principal); E11.9 Type 2 diabetes mellitus without complications; N32.1 Vesicointestinal fistula; Z72.0 Tobacco use

== ENCOUNTER → 2022-03-03 | Outpatient (CLI) | payer OTHER ==
[2022-03-03 08:14] LABS: HEMATOCRIT 44.6 % (37.0-47.0); MEAN CELL VOLUME 89.9 fl (81.0-99.0); MEAN CORPUSCULAR HGB CONC 32.3 g/dl (33.0-37.0); MEAN PLATELET VOLUME 9.8 fl (9.6-12.3); PLATELET COUNT AUTOMATED 471 10*3/uL (130-400); RED BLOOD COUNT 4.96 10*6/uL (4.10-5.10); RED CELL DISTRI WIDTH 13.6 % (0-14.5); WHITE BLOOD COUNT 12.2 10*3/uL (4.8-10.8)
[2022-03-03 08:39] LABS: ALKALINE PHOSPHATASE 147 U/L (45-117); BUN 12 mg/dl (7-24); CHLORIDE 105 mmol/L (98-107); CHOLESTEROL 208 mg/dL (<200); CREATININE 0.65 mg/dL (0.55-1.02); LDL CHOLESTEROL 130 mg/dL (9-159); POTASSIUM 4.4 mmol/L (3.5-5.1); SGOT/AST 18 IU/L (3-35); SGPT/ALT 22 U/L (12-78); SODIUM 137 mmol/L (136-145); TOTAL PROTEIN 7.9 gm/dL (6.4-8.2); TRIGLYCERIDES 192 mg/dl (<150)
[2022-03-03 08:55] LABS: MANUAL DIFF REFLEX YES
[2022-03-03 09:37] LABS: VITAMIN D, 25-HYDROXY 21.8 ng/mL (30-100)
[2022-03-03 09:49] LABS: TOTAL CELLS COUNTED 100 #CELLS
[2022-03-03 09:50] LABS: PLATELET SUFFICIENCY HIGH (NORMAL)
[2022-03-04 06:36] LABS: CREATININE,URINE 65.3 mg/dL (Not Estab.)
== END | disposition home or self-care (01) ==
LOC: LAB 07:51
PROVIDERS: ATTEND Internal Medicine Endocrinology, Diabetes & Metabolism
DX: E11.65 Type 2 diabetes mellitus with hyperglycemia (principal); E55.9 Vitamin D deficiency, unspecified; E53.8 Deficiency of other specified B group vitamins

== ENCOUNTER → 2022-03-12 | Outpatient (CLI) | payer OTHER | END | disposition home or self-care (01) | LOC: RESCLI 11:06 | PROVIDERS: ATTEND Internal Medicine | DX: J44.9 Chronic obstructive pulmonary disease, unspecified (principal); K21.9 Gastro-esophageal reflux disease without esophagitis; I10 Essential (primary) hypertension; E55.9 Vitamin D deficiency, unspecified; G62.9 Polyneuropathy, unspecified; E11.69 Type 2 diabetes mellitus with other specified complication; R07.9 Chest pain, unspecified; Z79.899 Other long term (current) drug therapy; Z88.0 Allergy status to penicillin; Z88.8 Allergy status to other drugs, medicaments and biological substances; Z90.49 Acquired absence of other specified parts of digestive tract; F17.210 Nicotine dependence, cigarettes, uncomplicated; Z79.01 Long term (current) use of anticoagulants ==

== ENCOUNTER → 2022-07-17 | Outpatient (CLI) | payer OTHER | END | disposition home or self-care (01) | LOC: RESCLI 15:03 | PROVIDERS: ATTEND Internal Medicine | DX: J44.9 Chronic obstructive pulmonary disease, unspecified (principal); E11.69 Type 2 diabetes mellitus with other specified complication; I10 Essential (primary) hypertension; E55.9 Vitamin D deficiency, unspecified; K43.2 Incisional hernia without obstruction or gangrene; F17.200 Nicotine dependence, unspecified, uncomplicated; C55 Malignant neoplasm of uterus, part unspecified; Z13.9 Encounter for screening, unspecified; Z98.890 Other specified postprocedural states; Z82.49 Family history of ischemic heart disease and other diseases of the circulatory system; Z90.49 Acquired absence of other specified parts of digestive tract; Z88.8 Allergy status to other drugs, medicaments and biological substances; Z88.0 Allergy status to penicillin; Z79.84 Long term (current) use of oral hypoglycemic drugs; Z79.899 Other long term (current) drug therapy ==

== ENCOUNTER → 2022-07-21 | Outpatient (CLI) | payer OTHER ==
[2022-07-21 08:24] LABS: BASO # 0.1 10*3/uL (0.0-0.1); BASO % 0.8 % (0.0-1.0); EOS # 0.3 10*3/uL (0.0-0.4); EOS % 2.3 % (1.0-4.0); HEMATOCRIT 46.3 % (37.0-47.0); LYMPH % 32.2 % (27.0-41.0); MEAN CELL VOLUME 90.6 fl (81.0-99.0); MEAN CORPUSCULAR HGB 29.4 pg (27.0-31.0); MEAN CORPUSCULAR HGB CONC 32.4 g/dl (33.0-37.0); MEAN PLATELET VOLUME 10.5 fl (9.6-12.3); MONO # 0.8 10*3/uL (0.1-1.0); MONO % 6.2 % (3.0-9.0); NEUT # 7.2 10*3/uL (2.3-7.9); PLATELET COUNT AUTOMATED 393 10*3/uL (130-400); RED BLOOD COUNT 5.11 10*6/uL (4.10-5.10); RED CELL DISTRI WIDTH 12.9 % (0-14.5); WHITE BLOOD COUNT 12.4 10*3/uL (4.8-10.8)
[2022-07-21 08:47] LABS: ALKALINE PHOSPHATASE 155 U/L (46-116); BUN 10 mg/dl (9-23); CHLORIDE 101 mmol/L (98-107); POTASSIUM 4.2 mmol/L (3.4-5.1); SGPT/ALT 22 U/L (10-49); TOTAL PROTEIN 7.2 gm/dL (6.0-8.0)
== END | disposition home or self-care (01) ==
LOC: LAB 08:06
PROVIDERS: ATTEND Internal Medicine
DX: Z13.9 Encounter for screening, unspecified (principal)

== ENCOUNTER → 2022-07-24 | Outpatient (CLI) | payer OTHER | END | disposition home or self-care (01) | LOC: RESCLI 03:03 | PROVIDERS: ATTEND Internal Medicine | DX: E11.9 Type 2 diabetes mellitus without complications (principal); F17.210 Nicotine dependence, cigarettes, uncomplicated; Z13.9 Encounter for screening, unspecified; Z79.84 Long term (current) use of oral hypoglycemic drugs; Z79.899 Other long term (current) drug therapy ==

== ENCOUNTER → 2022-10-11 | Outpatient (CLI) | payer OTHER | END | disposition home or self-care (01) | LOC: RESCLI 00:42 | PROVIDERS: ATTEND Internal Medicine | DX: R00.0 Tachycardia, unspecified (principal); R00.2 Palpitations; I10 Essential (primary) hypertension; R06.02 Shortness of breath; Z79.899 Other long term (current) drug therapy ==

== ENCOUNTER → 2022-10-11 | Outpatient (CLI) | payer OTHER | END | disposition home or self-care (01) | LOC: RAD 12:26 → CARD 12:29 | PROVIDERS: ATTEND Student in an Organized Health Care Education/Training Program | DX: R00.0 Tachycardia, unspecified (principal) ==

== ENCOUNTER → 2022-10-30 | Outpatient (CLI) | payer OTHER | END | disposition home or self-care (01) | LOC: RESCLI 01:20 | PROVIDERS: ATTEND Internal Medicine | DX: Z13.9 Encounter for screening, unspecified (principal); E11.9 Type 2 diabetes mellitus without complications; I10 Essential (primary) hypertension; Z98.890 Other specified postprocedural states; F17.210 Nicotine dependence, cigarettes, uncomplicated; Z90.49 Acquired absence of other specified parts of digestive tract; Z88.5 Allergy status to narcotic agent; Z88.0 Allergy status to penicillin; Z79.899 Other long term (current) drug therapy ==

== ENCOUNTER → 2023-05-14 | Outpatient (CLI) | payer OTHER ==
[2023-05-14 07:42] LABS: HEMATOCRIT 48.1 % (37.0-47.0); MEAN CELL VOLUME 93.2 fl (81.0-99.0); MEAN CORPUSCULAR HGB 30.4 pg (27.0-31.0); MEAN CORPUSCULAR HGB CONC 32.6 g/dl (33.0-37.0); MEAN PLATELET VOLUME 10.3 fl (9.6-12.3); RED BLOOD COUNT 5.16 10*6/uL (4.10-5.10); RED CELL DISTRI WIDTH 13.3 % (0-14.5); WHITE BLOOD COUNT 10.6 10*3/uL (4.8-10.8)
[2023-05-14 08:15] LABS: ALKALINE PHOSPHATASE 177 U/L (46-116); BUN 11 mg/dl (9-23); CHLORIDE 104 mmol/L (98-107); CHOLESTEROL 207 mg/dL (<200); CPK 45 U/L (34-171); LDL CHOLESTEROL 126 mg/dL (9-159); POTASSIUM 4.3 mmol/L (3.4-5.1); SGPT/ALT 26 U/L (5-49); TOTAL PROTEIN 7.1 gm/dL (6.0-8.0); TRIGLYCERIDES 143 mg/dl (<150)
[2023-05-14 08:19] LABS: VITAMIN D, 25-HYDROXY 27.3 ng/mL (30-100)
== END | disposition home or self-care (01) ==
LOC: LAB 07:27
PROVIDERS: ATTEND Family Medicine
DX: E11.9 Type 2 diabetes mellitus without complications (principal); E78.00 Pure hypercholesterolemia, unspecified; I10 Essential (primary) hypertension; E55.9 Vitamin D deficiency, unspecified; E66.9 Obesity, unspecified; L68.0 Hirsutism

== ENCOUNTER 2023-10-19 10:32 | Emergency (ER) | payer OTHER ==
[~2023-10-19] VITALS: Ht 175.2 cm; Wt 115.7 kg
[2023-10-19 10:40] VITALS: BP 112/105
== END 2023-10-19 11:06 | disposition home or self-care (01) ==
LOC: ED 10:32
DX: Z11.3 Encounter for screening for infections with a predominantly sexual mode of transmission (principal); J44.9 Chronic obstructive pulmonary disease, unspecified; E11.9 Type 2 diabetes mellitus without complications; I10 Essential (primary) hypertension; E78.5 Hyperlipidemia, unspecified; F17.200 Nicotine dependence, unspecified, uncomplicated; Z88.0 Allergy status to penicillin; Z91.048 Other nonmedicinal substance allergy status; Z88.1 Allergy status to other antibiotic agents; Z91.040 Latex allergy status; Z79.899 Other long term (current) drug therapy; Z98.890 Other specified postprocedural states; Z90.49 Acquired absence of other specified parts of digestive tract; Z98.51 Tubal ligation status; Z90.711 Acquired absence of uterus with remaining cervical stump

== ENCOUNTER → 2023-10-21 | Outpatient (CLI) | payer OTHER ==
[2023-10-21 11:15] LABS: HEMATOCRIT 48.6 % (37.0-47.0); MEAN CELL VOLUME 92.9 fl (81.0-99.0); MEAN CORPUSCULAR HGB 29.4 pg (27.0-31.0); MEAN CORPUSCULAR HGB CONC 31.7 g/dl (33.0-37.0); MEAN PLATELET VOLUME 10.4 fl (9.6-12.3); RED BLOOD COUNT 5.23 10*6/uL (4.10-5.10); RED CELL DISTRI WIDTH 13.2 % (0-14.5); WHITE BLOOD COUNT 14.4 10*3/uL (4.8-10.8)
[2023-10-21 11:48] LABS: ALKALINE PHOSPHATASE 167 U/L (46-116); BUN 6 mg/dl (9-23); CHLORIDE 99 mmol/L (98-107); CHOLESTEROL 166 mg/dL (<200); LDL CHOLESTEROL 84 mg/dL (9-159); POTASSIUM 4.1 mmol/L (3.4-5.1); SGPT/ALT 25 U/L (5-49); TOTAL PROTEIN 7.3 gm/dL (6.0-8.0); TRIGLYCERIDES 135 mg/dl (<150)
[2023-10-22 05:06] LABS: HBSAG Negative (Negative); HEP B CORE AB, IGM Negative (Negative); HEPATITIS C ANTIBODY Non Reactive (Non Reactive)
== END | disposition home or self-care (01) ==
LOC: LAB 10:52
PROVIDERS: ATTEND Family Medicine
DX: E11.9 Type 2 diabetes mellitus without complications (principal); E78.00 Pure hypercholesterolemia, unspecified; I10 Essential (primary) hypertension; Z72.51 High risk heterosexual behavior; Z20.6 Contact with and (suspected) exposure to human immunodeficiency virus [HIV]

== ENCOUNTER 2024-03-03 20:11 | Emergency (ER) | payer OTHER ==
[~2024-03-03] VITALS: Ht 175.2 cm; Wt 104.3 kg
[2024-03-03 20:21] VITALS: BP 156/81
[2024-03-03] MEDS ORDERED: methylPREDNISolone sod succ 125 MG VIAL IM ONE (20:45)
[2024-03-03] MEDS ORDERED: ZITHROMAX250 MG PO (22:12)
[2024-03-03] MEDS ORDERED: PREDNISONE20 M1 PO (22:12)
== END 2024-03-03 22:19 | disposition home or self-care (01) ==
LOC: ED 20:11
DX: B34.9 Viral infection, unspecified (principal); F17.200 Nicotine dependence, unspecified, uncomplicated; Z88.0 Allergy status to penicillin; Z91.048 Other nonmedicinal substance allergy status; Z88.1 Allergy status to other antibiotic agents; Z91.040 Latex allergy status; Z79.899 Other long term (current) drug therapy; Z79.4 Long term (current) use of insulin; Z98.890 Other specified postprocedural states; Z90.49 Acquired absence of other specified parts of digestive tract; Z98.51 Tubal ligation status

== ENCOUNTER → 2024-08-11 | Outpatient (CLI) | payer OTHER ==
[~2024-08-11] MED LIST changes: +PREDNISONE20 M1 PO
[2024-08-11 08:40] LABS: HEMATOCRIT 48.6 % (37.0-47.0); MEAN CELL VOLUME 91.9 fl (81.0-99.0); MEAN CORPUSCULAR HGB 29.7 pg (27.0-31.0); MEAN CORPUSCULAR HGB CONC 32.3 g/dl (33.0-37.0); MEAN PLATELET VOLUME 10.5 fl (9.6-12.3); RED BLOOD COUNT 5.29 10*6/uL (4.10-5.10); RED CELL DISTRI WIDTH 12.7 % (0-14.5); WHITE BLOOD COUNT 10.2 10*3/uL (4.8-10.8)
[2024-08-11 09:23] LABS: ALKALINE PHOSPHATASE 190 U/L (46-116); BUN 8 mg/dl (9-23); CHLORIDE 103 mmol/L (98-107); CHOLESTEROL 204 mg/dL (<200); CPK 57 U/L (34-171); LDL CHOLESTEROL 117 mg/dL (9-159); SGPT/ALT 24 U/L (5-49); TOTAL PROTEIN 7.4 gm/dL (6.0-8.0); TRIGLYCERIDES 126 mg/dl (<150)
== END | disposition home or self-care (01) ==
LOC: LAB 08:13
PROVIDERS: ATTEND Family Medicine
DX: I10 Essential (primary) hypertension (principal); E11.9 Type 2 diabetes mellitus without complications; E78.00 Pure hypercholesterolemia, unspecified

== ENCOUNTER 2024-09-21 21:25 | Emergency (ER) | payer OTHER ==
[~2024-09-21] VITALS: Ht 175.2 cm; Wt 127.0 kg
[2024-09-21 21:36] VITALS: BP 154/96
[2024-09-21] MEDS ORDERED: Ondansetron Hydrochloride 4 MG TAB SL ONE (21:45)
[2024-09-21 21:56] LABS: BASO # 0.1 10*3/uL (0.0-0.1); BASO % 0.7 % (0.0-1.0); EOS # 0.2 10*3/uL (0.0-0.4); EOS % 1.2 % (1.0-4.0); HEMATOCRIT 46.9 % (37.0-47.0); MEAN CORPUSCULAR HGB 30.1 pg (27.0-31.0); MEAN CORPUSCULAR HGB CONC 33.5 g/dl (33.0-37.0); MEAN PLATELET VOLUME 10.4 fl (9.6-12.3); MONO # 0.9 10*3/uL (0.1-1.0); MONO % 6.8 % (3.0-9.0); NEUT # 6.7 10*3/uL (2.3-7.9); NEUT % 52.2 % (47.0-73.0); PLATELET COUNT AUTOMATED 377 10*3/uL (130-400); RED BLOOD COUNT 5.21 10*6/uL (4.10-5.10); RED CELL DISTRI WIDTH 12.4 % (0-14.5); WHITE BLOOD COUNT 12.9 10*3/uL (4.8-10.8)
[2024-09-21 22:24] LABS: ALKALINE PHOSPHATASE 183 U/L (46-116); BUN 14 mg/dl (9-23); CHLORIDE 99 mmol/L (98-107); LIPASE 130 U/L (12-53); POTASSIUM 4.4 mmol/L (3.4-5.1); SGPT/ALT 27 U/L (5-49); TOTAL PROTEIN 7.5 gm/dL (6.0-8.0)
[2024-09-21] MEDS ORDERED: INSULIN REGULAR, HUMAN 1 UNIT/0.01 ML IV ONE (22:40)
[2024-09-21] MEDS ORDERED: SODIUM CHLORIDE 0.9% 1,000 ML IV ONE ×2 (22:40)
[2024-09-22] MEDS ORDERED: HYDROmorphONE Hydrochloride 0.5 MG/0.5 ML SYRINGE IV ONE (00:35)
[2024-09-22] MEDS ORDERED: Ondansetron Hydrochloride 4 MG TAB SL ONE ×2 (02:00)
== END 2024-09-22 01:59 | disposition home or self-care (01) ==
LOC: ED 21:25
PROVIDERS: Internal Medicine
DX: R10.12 Left upper quadrant pain (principal); R79.89 Other specified abnormal findings of blood chemistry; D72.829 Elevated white blood cell count, unspecified; E46 Unspecified protein-calorie malnutrition; Z68.1 Body mass index [BMI] 19.9 or less, adult; E11.9 Type 2 diabetes mellitus without complications; J44.9 Chronic obstructive pulmonary disease, unspecified; G43.909 Migraine, unspecified, not intractable, without status migrainosus; I10 Essential (primary) hypertension; F17.200 Nicotine dependence, unspecified, uncomplicated; Z87.442 Personal history of urinary calculi; Z88.0 Allergy status to penicillin; Z91.048 Other nonmedicinal substance allergy status; Z88.1 Allergy status to other antibiotic agents; Z91.040 Latex allergy status; Z98.890 Other specified postprocedural states; Z90.49 Acquired absence of other specified parts of digestive tract; Z95.5 Presence of coronary angioplasty implant and graft

== ENCOUNTER 2025-06-10 18:16 | Emergency (ER) | payer OTHER ==
[~2025-06-10] VITALS: Ht 175.2 cm; Wt 117.9 kg
[2025-06-10 18:22] VITALS: BP 148/85
[2025-06-10] MEDS ORDERED: Ondansetron Hydrochloride 4 MG/2 ML VIAL IV ONE (18:35)
[2025-06-10] MEDS ORDERED: ACETAMINOPHEN 325 MG TAB PO ONE (18:35)
[2025-06-10] MEDS ORDERED: SODIUM CHLORIDE 0.9% 1,000 ML IV ONE (18:40)
[2025-06-10 18:55] LABS: BASO # 0.1 10*3/uL (0.0-0.1); BASO % 0.8 % (0.0-1.0); EOS # 0.2 10*3/uL (0.0-0.4); EOS % 1.7 % (1.0-4.0); MEAN CELL VOLUME 92.5 fl (81.0-99.0); MEAN CORPUSCULAR HGB 30.1 pg (27.0-31.0); MEAN PLATELET VOLUME 10.8 fl (9.6-12.3); MONO # 0.9 10*3/uL (0.1-1.0); MONO % 6.8 % (3.0-9.0); NEUT # 8.0 10*3/uL (2.3-7.9); NEUT % 57.8 % (47.0-73.0); NUCLEATED RED BLOOD CELL 0.0 % (0.0-0.0); NUCLEATED RED BLOOD CELL 0.0 10*3/uL (0.0-0.0); PLATELET COUNT AUTOMATED 325 10*3/uL (130-400); RED CELL DISTRI WIDTH 12.5 % (0-14.5)
[2025-06-10 19:14] LABS: ACT PARTIAL THROMBO TIME 27.1 SECONDS (20.0-32.1)
[2025-06-10 19:15] LABS: BUN 14 mg/dl (9-23)
== END 2025-06-10 21:00 | disposition home or self-care (01) ==
LOC: ED 18:16
PROVIDERS: Emergency Medicine
DX: B34.9 Viral infection, unspecified (principal); R07.89 Other chest pain; F17.200 Nicotine dependence, unspecified, uncomplicated; Z88.0 Allergy status to penicillin; Z91.048 Other nonmedicinal substance allergy status; Z91.040 Latex allergy status; Z79.899 Other long term (current) drug therapy; Z79.4 Long term (current) use of insulin; Z98.890 Other specified postprocedural states; Z90.49 Acquired absence of other specified parts of digestive tract; Z20.822 Contact with and (suspected) exposure to COVID-19